=== PATIENT | male | born 1935 | race Hispanic/Latino ===

== ENCOUNTER 2016-11-28 08:13 | Emergency (ER) | payer MEDICARE, MEDICAID ==
[2016-11-28 09:08] LABS: #Eosinphils 0.2 thou/uL (0.0-0.7); #Lymphocytes 1.4 thou/uL (1.20-3.40); #Monocytes 0.4 thou/uL (0.11-0.59); #Neutrophils 3.2 thou/uL (1.40-6.50); %Basophils 0.4 % (0.0-1.0); %Eosinophils 4.1 % (0.0-10.0); %Lymphocytes 26.6 % (21.0-51.0); %Monocytes 7.1 % (0.0-10.0); Hematocrit 32.6 % (42.0-52.0); Mean Platelet Volume 6.1 fL (7.4-10.4); White Blood Cell (WBC) Count 5.1 thou/uL (4.8-10.8)
--- NOTE | 2016-11-28 09:08 | RAD ---
CHEST 1 VIEW: HISTORY: Pain. COMPARISON: Chest 1 view 09/07/15. FINDINGS: Heart size is enlarged. There is a vascular stent over the right subclavian vasculature. Some atelectasis in the lower lobes. No pneumothorax. IMPRESSION: Cardiomegaly. Otherwise, no acute intrathoracic abnormality. POS: [facility]
[2016-11-28 09:24] LABS: PTT 39.7 SEC (22.9-36.1)
[2016-11-28 09:26] LABS: Lactic Acid - Sepsis 1.1 mmol/L (0.5-2.2)
[2016-11-28 09:27] LABS: ALT (SGPT) 13 U/L (8-55); AST (SGOT) 13 U/L (5-34); Alkaline Phosphatase 139 U/L (40-150); Anion Gap 12 mmol/L (10-20); BUN (Urea Nitrogen) 22 mg/dL (8.4-25.7); Bilirubin, Total 0.4 mg/dL (0.2-1.2); CK (CPK) 53 U/L (30-200); Calc. Creatinine Clearance 0 mL/min (70-130); Calcium 8.8 mg/dL (7.8-10.44); Carbon Dioxide 27 mmol/L (23-31); Chloride 102 mmol/L (98-107); Estimated GFR-MDRD 23; Globulin 3.7 g/dL (2.4-3.5); Protein, Total 7.4 g/dL (5.8-8.1)
[2016-11-28 09:32] LABS: Troponin I Less than 0.010 ng/mL (< 0.028)
--- NOTE | 2016-11-28 10:40 | CT ---
HEAD CT NONCONTRAST: 11/28/16 COMPARISON: 23 September 2015. INDICATION: Pain. FINDINGS: There is mild parenchymal volume loss with stable sized ventricular system. No intracranial hemorrha ge, mass effect or midline shift. There are terra holes of the right calvarium again seen. No significant interval detrimental change. IMPRESSION: No acute intracranial hemorrhage or mass effect. Resolution of prior minimal parafalcine subdural hematoma. POS: [facility]
--- NOTE | 2016-11-28 10:47 | CT ---
CT OF THE CERVICAL SPINE WITHOUT CONTRAST: Date: 11/28/16 COMPARISON: 09/22/15. HISTORY: Cervical pain. TECHNIQUE: Multiple contiguous axial images were obtained in a CT of the cervical spine without contrast. Sagit otto and coronal reformats were performed. FINDINGS: There are moderate degenerative changes throughout the cervical spine. These appear to have progress ed compared to the prior examination. The intervertebral discs continue to narrow and posterior oste ophytes are seen throughout the cervical spine causing moderate central canal stenosis. There is als o moderate bilateral neural foraminal stenosis throughout the cervical spine. No acute fracture or s ubluxation is seen. No prevertebral soft tissue swelling is seen. The posterior facets are well aligned. Normal alignment of the skull base with the cervical spine is seen. There is a stent in the right subclavian region. The visualized lung apices are unremarkable. IMPRESSION: Moderate to severe degenerative changes of the cervical spine without acute osseous abnormality. POS: [facility]
[2016-11-28] MEDS ORDERED: Dexamethasone 4 mg/ml Vial ONE ×2 (11:07)
== END 2016-11-28 12:41 | disposition home or self-care (01) ==
LOC: ERS 08:13
DX: M54.2 Cervicalgia (principal); F03.90 Unspecified dementia, unspecified severity, without behavioral disturbance, psychotic disturbance, mood disturbance, and anxiety; D64.9 Anemia, unspecified; I11.0 Hypertensive heart disease with heart failure; I50.9 Heart failure, unspecified; E78.5 Hyperlipidemia, unspecified; F32.9 Major depressive disorder, single episode, unspecified; Z79.4 Long term (current) use of insulin; Z99.2 Dependence on renal dialysis; Z79.899 Other long term (current) drug therapy
CPT/HCPCS: 36415; 70450; 71010; 72125; 80053; 82553; 83605; 84484; 85025; 85610; 85730; 93005; 94760; J1100

== ENCOUNTER 2017-03-29 20:01 | Inpatient (IN) | payer MEDICARE, MEDICAID ==
--- NOTE | 2017-03-29 20:33 | RAD ---
FRONTAL VIEW CHEST 03/29/17 COMPARISON: 11/28/16 INDICATION: Altered mental status. FINDINGS: Stable linear density overlies the left aspect of the cardiac silhouette. There is patchy bilateral p erihilar density. Elevation of right hemidiaphragm is seen. Enlargement of the cardiac silhouette and pulmonary vasculature suggests CHF/edema. IMPRESSION: Grossly stable chest with findings to indicate CHF. Correlate clinically. POS: [facility]
--- NOTE | 2017-03-29 20:45 | CT ---
CT HEAD NONCONTRAST 03/29/17 INDICATION: Confusion, altered mental status. FINDINGS: there is no intracranial hemorrhage, mass effect or midline shift. Mild parenchymal volume los sis ag e related. Ventricular system is age appropriate in size. No acute fluid of the paranasal sinuses. IMPRESSION: No acute intracranial hemorrhage or mass effect. POS: [facility]
[2017-03-29 20:55] LABS: #Eosinphils 0.3 thou/uL (0.0-0.7); #Lymphocytes 1.4 thou/uL (1.20-3.40); #Monocytes 0.3 thou/uL (0.11-0.59); #Neutrophils 2.8 thou/uL (1.40-6.50); %Basophils 0.5 % (0.0-1.0); %Eosinophils 5.2 % (0.0-10.0); %Lymphocytes 29.9 % (21.0-51.0); %Monocytes 5.9 % (0.0-10.0); %Neutrophils 58.5 % (42.0-75.0); Hemoglobin 11.7 g/dL (14.0-18.0); Mean Corpuscular HGB CONC 32.5 g/dL (32.0-36.0); Mean Corpuscular Hemoglobin 31.6 pg (27.0-31.0); Mean Corpuscular Volume 97.3 fl (80.0-94.0); Mean Platelet Volume 7.2 fL (7.4-10.4); Platelet Count 161 thou/uL (130-400); RBC Distribution Width 15.7 % (11.5-14.5); Red Blood Cell (RBC) Count 3.69 mill/uL (4.70-6.10); White Blood Cell (WBC) Count 4.8 thou/uL (4.8-10.8)
[2017-03-29 21:00] LABS: Bilirubin Negative (Negative); Blood, Urine Negative (Negative); Clarity CLEAR (Clear); Glucose, Urine (Dipstick) 100 mg/dL (Negative); Leukocyte Negative (Negative); Nitrite Negative (Negative); Protein, Urine (Dipstick) 100 mg/dL (Neg-Trace); Specific Gravity, Urine 1.013 (1.002-1.036); Urobilinogen 0.2 mg/dL (0.2-1.0); pH, Urine 7.5 (5.0-9.0)
[2017-03-29 21:02] LABS: Bacteria/HPF None Seen HPF (None Seen); Hyaline Casts/LPF 0-3 HYALINE CAST LPF (0-3 Hyaline); Pathc Cast-AUWi Flag 0.27 (0-2.49); RBC/HPF 0-3 HPF (0-3); Squamous Epithelial 0-3 HPF (0-3); WBC/HPF 0-3 HPF (0-3)
[2017-03-29 21:17] LABS: ALT (SGPT) 18 U/L (8-55); AST (SGOT) 14 U/L (5-34); Albumin 3.7 g/dL (3.4-4.8); Alkaline Phosphatase 128 U/L (40-150); Anion Gap 12 mmol/L (10-20); BUN (Urea Nitrogen) 40 mg/dL (8.4-25.7); Bilirubin, Total 0.4 mg/dL (0.2-1.2); CK (CPK) 35 U/L (30-200); Calc. Creatinine Clearance 0 mL/min (70-130); Calcium 8.3 mg/dL (7.8-10.44); Carbon Dioxide 27 mmol/L (23-31); Chloride 104 mmol/L (98-107); Estimated GFR-MDRD 16; Globulin 3.1 g/dL (2.4-3.5); Glucose 147 mg/dL (83-110); Potassium 4.3 mmol/L (3.5-5.1); Protein, Total 6.8 g/dL (5.8-8.1); Sodium 139 mmol/L (136-145)
[2017-03-29 21:20] LABS: CKMB 0.8 ng/mL (0-6.6); Troponin I Less than 0.010 ng/mL (< 0.028)
[2017-03-29] MEDS ORDERED: Sodium Chloride 0.9% 1,000 ML IV SCH (23:45)
[2017-03-29] MEDS ORDERED: Acetaminophen 325 MG TAB PO PRN (23:45)
[2017-03-29] MEDS ORDERED: HumaLOG 300 UNITS/3 ML VIAL SC PRN (23:52)
[2017-03-29] MEDS ORDERED: Dextrose 5% in Water 1,000 ML IV PRN (23:52)
[2017-03-29] MEDS ORDERED: Dextrose 50% Abboject 50 ML SYRINGE SLOW IVP PRN (23:52)
[2017-03-30 00:44] VITALS: BMI 28.8
--- NOTE | 2017-03-30 00:49 | HP ---
CHIEF COMPLAINT: Altered mental status. HISTORY OF PRESENT ILLNESS: Patient is an 81-year-old male who currently resides at a correction. He was brought in due to unresponsiveness and responsive only to painful stimuli per correction no shavon. Patient is Irish-speaking only and through the interpretation line, when I had him asking que stions, he would only respond with asking for food. This appears to be more interactive than cm swartz prior to me seeing him. He was documented as being were sought who responsive only to painful st imuli. He does also have a history of having blindness in one eye. The patient otherwise was not ab le to give me any history and rest of history is from the chart. PAST MEDICAL HISTORY: Patient is listed as having renal disease on hemodialysis with end-stage renal disease. He also has dementia and it is unclear what his baseline. Currently, he has listed also a history of diabetes, hyperlipidemia, and hypertension. 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 He has a fistula in hi s upper arm on the right side, which is being dialyzed. SOCIAL HISTORY: Patient currently lives in a correction, listed as not having any alcohol or tobac co use. REVIEW OF SYSTEMS: Unable to obtain due to confusion and probable dementia. LABORATORY AND X-RAY DATA: Patient's CBC, white count was 4.8, H&H 11 and 35 with a platelet of 161. Sodium is 139, potassium 4.3, chloride 104, BUN 40, creatinine 3.5 with bicarbonate of 27. UA was negative for leukocyte esterase and nitrites. Chest x-ray was unremarkable and his head CT did not s how any signs of acute stroke or bleed. PHYSICAL EXAMINATION: VITAL SIGNS: Blood pressure 168/82, pulse 64, respirations 16 and patient sat is 96% on room air. GENERAL: Patient is awake. He does respond somewhat, but through interpretation only says that he w ants food. HEENT: Pupils are equal, round, react to light and accommodation. Extraocular muscles appear to be intact. CARDIOVASCULAR: Regular rate and rhythm. LUNGS: Clear to auscultation bilaterally. ABDOMEN: Positive bowel sounds, soft, nontender, nondistended. EXTREMITIES: No clubbing, cyanosis, or edema noted left BKA. NEUROLOGIC: Patient is moving all his extremities. PSYCHIATRIC: Patient appears to be cognizant of his surroundings; however, does not respond appropri ately through translation. ASSESSMENT AND PLAN: 1. Altered mental status, unclear etiology at this point. He certainly appears to be improved from initial presentation. Continue to observe and monitor. 2. Type 2 diabetes. Continue on sliding scale. 3. End-stage renal disease. We will notify Nephrology in the morning of patient's admission status. 4. Hypertension, careful monitoring of his blood pressure with judicious use of his blood pressure m edication as certainly hypotension can cause him to be altered. 5. Code status: Unknown. Currently, we will clarify in the morning from correction; however, we will maintain and was FULL CODE for now.
[2017-03-30] MEDS ORDERED: hydrALAZINE 20 MG/ML VIAL SLOW IVP PRN (08:09)
[2017-03-30] MEDS ORDERED: cloNIDine 0.1 MG TAB PO PRN (08:09)
--- NOTE | 2017-03-30 08:12 | PDOC.PN ---
- Subjective Encounter Start Date: 03/30/17 Encounter Start Time: 08:10 Mr. Vila was seen today in follow-up for altered mental status. He appears to be at his baseline. One of our staff members who also works at his nursing facility notes he appears baseline. He is sitting up in bed. He is awake and alert. When asked how he feels he says he feels like a " Miller". He has no complaints. - Objective Resuscitation Status: Resuscitation Status FULL:Full Resuscitation MAR Reviewed: Yes Vital Signs & Weight: Vital Signs (12 hours) Temp Pulse Resp BP Pulse Ox 03/30/17 04:43 97.7 F 74 20 190/84 H 95 03/30/17 00:18 96.7 F L 73 18 96 03/29/17 23:53 96.7 F L 73 18 184/85 H 96 Weight Weight 162 lb 14.4 oz I&O: 03/29/17 03/30/17 03/31/17 06:59 06:59 06:59 Intake Total 375 Output Total 0 Balance 375 Result Diagrams: 03/29/17 20:40 03/29/17 20:40 Additional Labs: Accuchecks 03/30/17 05:54 POC Glucose 137 H Phys Exam - Physical Examination HEENT: PERRLA Respiratory: no wheezing, no rales, no rhonchi, clear to auscultation bilateral Cardiovascular: RRR, no significant murmur Gastrointestinal: soft, non-tender, positive bowel sounds Musculoskeletal: no edema Bilateral amputations lower extremities Dx/Plan (1) Altered mental status Code(s): R41.82 - ALTERED MENTAL STATUS, UNSPECIFIED Status: Acute (2) ESRD (end stage renal disease) on dialysis Code(s): N18.6 - END STAGE RENAL DISEASE; Z99.2 - DEPENDENCE ON RENAL DIALYSIS Status: Acute (3) DM type 2 (diabetes mellitus, type 2) Status: Chronic (4) HTN (hypertension) Code(s): I10 - ESSENTIAL (PRIMARY) HYPERTENSION Status: Chronic - Plan * Altered mental status- ? etiology, suspect due to Dementia * There are no obvious signs of infection, CT brain was negative * HTN- blood pressure is elevated- will add Hydralazine as needed * DM- Blood glucose is stable * ESRD- stable * He can be discharged back to the [facility].
[2017-03-30 08:47] LABS: #Eosinphils 0.2 thou/uL (0.0-0.7); #Lymphocytes 1.4 thou/uL (1.20-3.40); #Monocytes 0.3 thou/uL (0.11-0.59); #Neutrophils 3.3 thou/uL (1.40-6.50); %Basophils 0.2 % (0.0-1.0); %Eosinophils 3.6 % (0.0-10.0); %Lymphocytes 27.2 % (21.0-51.0); %Monocytes 4.8 % (0.0-10.0); %Neutrophils 64.3 % (42.0-75.0); Hemoglobin 11.9 g/dL (14.0-18.0); Mean Corpuscular Hemoglobin 31.8 pg (27.0-31.0); Mean Corpuscular Volume 96.4 fl (80.0-94.0); Mean Platelet Volume 6.8 fL (7.4-10.4); Platelet Count 139 thou/uL (130-400); RBC Distribution Width 15.6 % (11.5-14.5); Red Blood Cell (RBC) Count 3.73 mill/uL (4.70-6.10); White Blood Cell (WBC) Count 5.1 thou/uL (4.8-10.8)
[2017-03-30] MEDS ORDERED: Enoxaparin Sodium 30 MG/0.3 ML SYRINGE SC SCH (09:00)
[2017-03-30] MEDS ORDERED: Metoprolol Tartrate 50 MG TAB PO SCH (09:00)
[2017-03-30] MEDS ORDERED: Atorvastatin Calcium 10 MG TAB PO SCH (09:00)
[2017-03-30] MEDS ORDERED: hydrALAZINE 25 MG TAB PO SCH (09:00)
[2017-03-30 09:05] LABS: Anion Gap 13 mmol/L (10-20); BUN (Urea Nitrogen) 40 mg/dL (8.4-25.7); Calc. Creatinine Clearance 17 mL/min (70-130); Calcium 8.2 mg/dL (7.8-10.44); Carbon Dioxide 22 mmol/L (23-31); Chloride 107 mmol/L (98-107); Estimated GFR-MDRD 17; Glucose 174 mg/dL (83-110); Potassium 4.8 mmol/L (3.5-5.1); Sodium 137 mmol/L (136-145)
[2017-03-30 11:34] VITALS: BP 181/83; TEMP 98.1
[2017-03-30] MEDS ORDERED: Mirtazapine 15 MG TAB PO SCH (21:00)
--- NOTE | 2017-04-01 13:39 | DIS ---
DATE OF ADMISSION: 03/29/2017 DATE OF DISCHARGE: 03/30/2017 PRIMARY CARE PHYSICIAN: Dr. Troy Rivera. DISCHARGE DISPOSITION: [facility] to the [facility]. DISCHARGE DIAGNOSES: 1. Altered mental status, possibly due to dementia. 2. History of diabetes mellitus, type 2. 3. Hyperlipidemia. 4. Hypertension. 5. End-stage renal disease, on dialysis. DISCHARGE MEDICATIONS: Include, loperamide p.r.n., [place] 10/325 q.6 hours as needed, Apresoline 25 m g twice daily, gabapentin 100 mg daily, Lipitor 10 mg at bedtime, and Tylenol 650 mg q.4 hours as nee ded. PROCEDURES DONE DURING ADMISSION: The patient had a CT scan of the brain showing no acute intracrani al hemorrhage or mass. The patient also had urine culture, which was negative. HOSPITAL COURSE: Mr. Ambrocio is a pleasant 81-year-old gentleman, who was sent over from the nursing [facility], as it was reported that he was acting different than his normal self. He seemed less responsive. However, by the time he arrived at our hospital, he seemed back at his baseline One of the staff m paul here is familiar with him at the [facility] and stated that he appears to be back at his bas renée. When I saw him, he was awake, talking, joking, and saying he feels like a ulysses. Cultures don e were again negative. There was no evidence of any fever, no elevation in his white count. CT scan was negative and I suspect that the altered mental status could be just due to waxing and waning of his dementia. He was discharged back to the [facility] in stable condition.
--- NOTE | 2017-04-05 17:05 | EKG ---
Test Reason : Blood Pressure : / mmHG Vent. Rate : 065 BPM Atrial Rate : 065 BPM P-R Int : 206 ms QRS Dur : 086 ms QT Int : 438 ms P-R-T Axes : 073 041 020 degrees QTc Int : 455 ms Normal sinus rhythm Normal ECG Confirmed by ZAKIA JAMESON D.O. ([id number]), commercial production editor MILADYS VACA ([id number]) on 04/05/2017 5:04:23 PM Referred By: Confirmed By:ZAKIA JAMESON D.O.
== END 2017-03-30 12:53 | DRG 884 ==
LOC: ERS 20:01 → 2NO 22:28
PROVIDERS: ADMIT Hospitalist; ATTEND Hospitalist
DX: F03.90 Unspecified dementia, unspecified severity, without behavioral disturbance, psychotic disturbance, mood disturbance, and anxiety (principal); E11.22 Type 2 diabetes mellitus with diabetic chronic kidney disease; I12.0 Hypertensive chronic kidney disease with stage 5 chronic kidney disease or end stage renal disease; N18.6 End stage renal disease; Z99.2 Dependence on renal dialysis; Z89.511 Acquired absence of right leg below knee; E78.5 Hyperlipidemia, unspecified
CPT/HCPCS: 36415; 36416; 51701; 70450; 71045; 80048; 80053; 81003; 81015; 82553; 84484; 85025; 87086; 93005; J1650

== ENCOUNTER 2017-08-09 12:35 | Emergency (ER) | payer MEDICARE, MEDICAID ==
[2017-08-09 13:03] LABS: #Eosinphils 0.2 thou/uL (0.0-0.7); #Lymphocytes 1.1 thou/uL (1.20-3.40); #Monocytes 0.3 thou/uL (0.11-0.59); #Neutrophils 2.5 thou/uL (1.40-6.50); %Basophils 0.6 % (0.0-1.0); %Eosinophils 5.1 % (0.0-10.0); %Lymphocytes 26.9 % (21.0-51.0); %Monocytes 6.4 % (0.0-10.0); %Neutrophils 61.1 % (42.0-75.0); Mean Corpuscular HGB CONC 34.5 g/dL (32.0-36.0); Mean Corpuscular Volume 98.6 fL (78.0-98.0); Mean Platelet Volume 6.4 fL (7.4-10.4); Platelet Count 139 thou/uL (130-400); RBC Distribution Width 14.1 % (11.5-14.5); Red Blood Cell (RBC) Count 3.52 mill/uL (4.70-6.10)
[2017-08-09 13:23] LABS: Bilirubin Negative (Negative); Blood, Urine Negative (Negative); Clarity CLEAR (Clear); Glucose, Urine (Dipstick) 250 mg/dL (Negative); Leukocyte Negative (Negative); Nitrite Negative (Negative); Protein, Urine (Dipstick) 300 mg/dL (Neg-Trace); Specific Gravity, Urine 1.013 (1.002-1.036); Urobilinogen 0.2 mg/dL (0.2-1.0)
[2017-08-09 13:24] LABS: Bacteria/HPF None Seen HPF (None Seen); Hyaline Casts/LPF 0-3 HYALINE CAST LPF (0-3 Hyaline); Squamous Epithelial None Seen HPF (0-3); WBC/HPF 0-3 HPF (0-3)
[2017-08-09 13:26] LABS: ALT (SGPT) 13 U/L (8-55); AST (SGOT) 13 U/L (5-34); Albumin 3.9 g/dL (3.4-4.8); Alkaline Phosphatase 124 U/L (40-150); Anion Gap 13 mmol/L (10-20); BUN (Urea Nitrogen) 33 mg/dL (8.4-25.7); Bilirubin, Total 0.6 mg/dL (0.2-1.2); CK (CPK) 54 U/L (30-200); Calc. Creatinine Clearance 0 mL/min (70-130); Calcium 8.6 mg/dL (7.8-10.44); Carbon Dioxide 23 mmol/L (23-31); Chloride 111 mmol/L (98-107); Estimated GFR-MDRD 14; Globulin 2.8 g/dL (2.4-3.5); Glucose 109 mg/dL (83-110); Lipase 29 U/L (8-78); Magnesium 2.1 mg/dL (1.6-2.6); Phosphorus 3.1 mg/dL (2.3-4.7); Potassium 4.5 mmol/L (3.5-5.1); Protein, Total 6.7 g/dL (5.8-8.1); Sodium 142 mmol/L (136-145)
[2017-08-09 13:29] LABS: CKMB 1.4 ng/mL (0-6.6); Troponin I Less than 0.010 ng/mL (< 0.028)
[2017-08-09 13:52] LABS: Acetaminophen Less than 6.0 mcg/mL (10.0-30.0); Alcohol Less than 10 mg/dL (Less than 10); Salicylate Less than 8.0 mg/dL (15.0-30.0)
[2017-08-09] MEDS ORDERED: hydrALAZINE 20 MG/ML VIAL ONE (13:58)
--- NOTE | 2017-08-09 14:23 | CT ---
BRAIN CT WITHOUT IV CONTRAST: Date: 08/09/17 HISTORY: 82-year-old male with history of altered mental status. Patient is a dialysis patient. Agitation afte r dialysis. FINDINGS: Postop right craniotomy bur holes. No mass or midline shift. Bilateral atrophy and chronic white sandra er ischemic change. No evidence for acute hemorrhage. IMPRESSION: Atrophy and chronic white matter ischemic changes. No mass or bleed. Stable right-sided bur holes. Un changed from prior exam. POS: [facility]
--- NOTE | 2017-08-09 14:25 | RAD ---
PORTABLE CHEST: Date: 08/09/17 HISTORY: Mental status change. COMPARISON: 03/29/17. FINDINGS: The lung leone appear clear. The heart is mildly enlarged and there is mild vascular engorgement whi ch appears stable. IMPRESSION: No acute interval change noted. POS: [facility]
== END 2017-08-09 17:07 | disposition home or self-care (01) ==
LOC: ERS 12:35
DX: R41.82 Altered mental status, unspecified (principal); F03.90 Unspecified dementia, unspecified severity, without behavioral disturbance, psychotic disturbance, mood disturbance, and anxiety; D64.9 Anemia, unspecified; I11.0 Hypertensive heart disease with heart failure; I50.9 Heart failure, unspecified; E78.5 Hyperlipidemia, unspecified; F32.9 Major depressive disorder, single episode, unspecified; Z79.899 Other long term (current) drug therapy; E11.9 Type 2 diabetes mellitus without complications; Z79.4 Long term (current) use of insulin
CPT/HCPCS: 36416; 51701; 70450; 71045; 80053; 80307; 81003; 81015; 82550; 82553; 83690; 83735; 84100; 84443; 84484; 85025; 87086; 93005; 94760; 96374; J0360

== ENCOUNTER 2017-09-02 11:50 | Observation (INO) | payer MEDICARE, MEDICAID ==
[2017-09-02] MEDS ORDERED: Lorazepam 2 MG/ML VIAL ONE (12:16)
[2017-09-02 12:41] LABS: #Eosinphils 0.2 thou/uL (0.0-0.7); #Lymphocytes 1.8 thou/uL (1.20-3.40); #Monocytes 0.4 thou/uL (0.11-0.59); %Basophils 0.4 % (0.0-1.0); %Eosinophils 2.9 % (0.0-10.0); %Lymphocytes 27.3 % (21.0-51.0); %Monocytes 6.8 % (0.0-10.0); %Neutrophils 62.7 % (42.0-75.0); Hemoglobin 11.9 g/dL (14.0-18.0); Mean Corpuscular HGB CONC 35.1 g/dL (32.0-36.0); Mean Corpuscular Hemoglobin 34.1 pg (27.0-31.0); Mean Corpuscular Volume 97.4 fL (78.0-98.0); Mean Platelet Volume 6.7 fL (7.4-10.4); Platelet Count 146 thou/uL (130-400); RBC Distribution Width 12.8 % (11.5-14.5); Red Blood Cell (RBC) Count 3.48 mill/uL (4.70-6.10); White Blood Cell (WBC) Count 6.4 thou/uL (4.8-10.8)
[2017-09-02 12:59] LABS: ALT (SGPT) 15 U/L (8-55); AST (SGOT) 13 U/L (5-34); Albumin 3.9 g/dL (3.4-4.8); Alkaline Phosphatase 129 U/L (40-150); Anion Gap 14 mmol/L (10-20); BUN (Urea Nitrogen) 48 mg/dL (8.4-25.7); Bilirubin, Total 0.6 mg/dL (0.2-1.2); CK (CPK) 37 U/L (30-200); Calc. Creatinine Clearance 0 mL/min (70-130); Calcium 8.6 mg/dL (7.8-10.44); Carbon Dioxide 25 mmol/L (23-31); Chloride 103 mmol/L (98-107); Estimated GFR-MDRD 12; Globulin 2.9 g/dL (2.4-3.5); Glucose 110 mg/dL (83-110); Potassium 4.4 mmol/L (3.5-5.1); Protein, Total 6.8 g/dL (5.8-8.1); Sodium 138 mmol/L (136-145)
[2017-09-02 13:05] LABS: CKMB 0.8 ng/mL (0-6.6); Troponin I Less than 0.010 ng/mL (< 0.028)
--- NOTE | 2017-09-02 13:28 | CT ---
NONCONTRAST CT HEAD: Date: 09/02/17 HISTORY: Altered mental status. Patient sluggish and less interactive than usual. COMPARISON: 08/09/17. FINDINGS: Again noted are mild chronic small vessel ischemic changes and cerebral volume loss. There is no evid ence of an acute cortical infarction, hemorrhage, mass effect, or midline shift. The ventricular syst em is normal in size, shape, and position for the degree of sulcal atrophy. There has been no interva l change compared to the prior exam. IMPRESSION: No acute intracranial abnormality is demonstrated. POS: [facility]
[2017-09-02] MEDS ORDERED: Ondansetron HCl/PF 4 MG/2 ML Vial IVP PRN (19:55)
[2017-09-02] MEDS ORDERED: Ondansetron ODT 4 MG TAB SL PRN (19:55)
[2017-09-02] MEDS ORDERED: Acetaminophen 325 MG TAB PO PRN (19:55)
--- NOTE | 2017-09-03 04:40 | CON ---
DATE OF CONSULTATION: 09/02/2017 CONSULTING PHYSICIAN: ____. REASON FOR CONSULTATION: End-stage renal disease, evaluation and care. REASON FOR ADMISSION: Altered mentation. HISTORY OF PRESENT ILLNESS: This is an 82-year-old male with history of end-stage renal dis ease, type 2 diabetes, hypertension who came to the hospital with altered mentation. Patient was not acting normal and very sleepy this morning and was on his way to dialysis and EMS brought him to the hospital. No fevers or chills. PAST MEDICAL HISTORY: Positive for end-stage renal disease, anemia, hypertension, hyperlipidemia. PAST SURGICAL HISTORY: BKA and fistula placement. PAST MEDICATIONS: Atorvastatin, gabapentin, hydralazine, metoprolol, Mylanta, NovoLog, trazodone, B complex. ALLERGIES: No known drug allergies. SOCIAL HISTORY: No smoking, alcohol, or illicit drug abuse. FAMILY HISTORY: No history of any kidney disease. REVIEW OF SYSTEMS: The following complete review of systems was negative, unless otherwise mentioned in the HPI or below: Constitutional: Weight loss or gain, ability to conduct usual activities. Sk in: Rash, itching. Eyes: Double vision, pain. ENT/Mouth: Nose bleeding, neck stiffness, pain, te nderness. Cardiovascular: Palpitations, dyspnea on exertion, orthopnea. Respiratory: Shortness of breath, wheezing, cough, hemoptysis, fever, or night sweats. Gastrointestinal: Poor appetite, abdo faraz pain, heartburn, nausea, vomiting, constipation, or diarrhea. Genitourinary: Urgency, frequen cy, dysuria, nocturia. Musculoskeletal: Pain, swelling. Neurologic/Psychiatric: Anxiety, depressi on. Allergy/Immunologic: Skin rash, bleeding tendency. PHYSICAL EXAMINATION: GENERAL: This is an elderly male, very sleepy, somnolent. VITAL SIGNS: Temperature 98.6, pulse 60, respirations 18, blood pressure 156/70. HEENT: Atraumatic, normocephalic. Oral mucosa is moist. NECK: Supple, no masses. CARDIOVASCULAR: S1, S2 heard. Rate and rhythm regular. RESPIRATORY: Clear. ABDOMEN: Soft. MUSCULOSKELETAL: 1+ edema. DERMATOLOGIC: No skin rash. NEUROLOGIC: Alert, awake. PSYCHIATRIC: Mood and affect normal. LABORATORY DATA: Hemoglobin is 11.9, potassium 4.4, BUN is 40, creatinine is 4.7. ASSESSMENT AND PLAN: 1. End-stage renal disease, no acute indication for dialysis. 2. Edema, controlled. 3. Hypertension, stable. 4. Anemia, mild. Plan is to monitor and continue dialysis as tolerated. We will follow. Thank you for the consult.
[2017-09-03 05:59] VITALS: BMI 41.8
--- NOTE | 2017-09-03 17:23 | PRG ---
DATE OF SERVICE: 09/03/2017 SUBJECTIVE: Patient was seen and examined at bedside and overnight events noted. Patient denies any shortness of breath or chest pain or palpitation. No history of nausea or vomiting or diarrhea or f ever or chills or cramps. OBJECTIVE: GENERAL: This is a well-built male in no apparent distress. VITAL SIGNS: Temperature 97.6, pulse 61, respiratory rate 18, blood pressure 121/50. HEENT: Atraumatic, normocephalic. Oral mucosa is moist. NECK: Supple. CARDIOVASCULAR: S1, S2 heard. Rate and rhythm regular. RESPIRATORY: Clear to auscultation. GASTROINTESTINAL: Abdomen is soft. MUSCULOSKELETAL: No tenderness. No edema. DERMATOLOGIC: No skin rash. NEUROLOGIC: Alert and awake and oriented x3. No focal neurologic deficits. Moving all the extremiti es. PSYCHIATRIC: Mood and affect normal. LABORATORY DATA: Creatinine is 4.7. ASSESSMENT AND PLAN: 1. End-stage renal disease. Continue on dialysis as tolerated. 2. Edema controlled. 3. Hypertension, stable. 4. Anemia. 5. Altered mentation, better.
[2017-09-04 05:14] VITALS: BP 179/91
--- NOTE | 2017-09-04 08:27 | HP ---
PRIMARY CARE PHYSICIAN: None. WEB MANAGER: Dr. King DATE OF ADMISSION: 09/03/2017 CHIEF COMPLAINT: Altered mental status. HISTORY OF PRESENT ILLNESS: Mr. Ambrocio is an 82-year-old male with history of dementia, hyperlipidemia, hypertension, end-stage renal disease, diabetes, and peripheral neuropathy who prese nts to the emergency department via EMS. He is being transported to hemodialysis, he was noted by EMS to be less responsive and so he was brou ght to the ER. Here, workup was largely unremarkable. He was placed on our service for observation. He was accepte d by the mental retardation aide, but held over to the day shift. The patient was initially back to his baseline, they attempted to set him up for outpatient hemodialy sis, but they had no chairs available, so the patient is being placed in observation today. No other current complaints. PAST MEDICAL HISTORY: 1. End-stage renal disease on hemodialysis. 2. Hyperlipidemia. 3. Hypertension. 4. Peripheral neuropathy. 5. Diabetes mellitus type 2. PAST SURGICAL HISTORY: 1. Right BKA. 2. Left upper extremity fistula placement. ALLERGIES: NKDA. HOME MEDICATIONS: 1. Atorvastatin 10 mg p.o. at bedtime. 2. Gabapentin 100 mg daily. 3. Hydralazine 25 mg p.o. b.i.d. 4. Metoprolol tartrate 100 mg p.o. b.i.d. FAMILY HISTORY: Negative for clotting or bleeding disorder. No immune dysfunction. SOCIAL HISTORY: He lives at [facility]. Negative for habits x3. REVIEW OF SYSTEMS: Not obtainable due to dementia. PHYSICAL EXAMINATION: VITAL SIGNS: Temperature current 96.5 on admission, 97.5 on our visit, pulse 61, blood pressure 121/ 58, respiratory rate 16, satting 96% on room air. GENERAL: He is awake and alert. He is an elderly demented male on hemodialysis, appe ars to be in no distress. HEENT: Normocephalic, atraumatic. Pupils equal, round, and reactive to light bilaterally, they are sluggish. The mucous membranes are moist. He has bilateral arcus senilis. NECK: Supple. No lymphadenopathy, JVD, or thyromegaly. CHEST: Lungs are clear anteriorly. He has some faint bibasilar crackles that do not clear with deep inspiration. No wheezes. No prolonged expiratory phase. CARDIOVASCULAR: He is normal cardiac and regular. He has a 2/6 systolic ejection murmur right upper sternal border. ABDOMEN: Soft, it is obese, it is nontender, nondistended. No hepatosplenomegaly. EXTREMITIES: No cyanosis, clubbing, no edema. Fistula with a good palpable thrill. He is currently hooked up to dialysis. SKIN: Otherwise warm, moist and well-perfused without any other rash or lesions. MUSCULOSKELETAL: Normal to inspection. He has a right BKA, stump is intact. The remainder of his l arge joints appeared normal without any evidence of inflammation or palpable effusions. NEUROLOGIC: Not testable due to dementia and the patient not following commands. LABORATORY DATA: Chemistry shows a sodium 138, potassium 4.4, chloride 103, bicarbonate 25, BUN 48, creatinine 4.76, glucose 110, calcium 8.6. Liver functions within normal limits. Ammonia normal at 23, CK-MB normal at 0.8 and troponin I undetectable. Hematology showed a white blood cell count 6.4, hemoglobin 11.9, hematocrit 33.9, platelet count is 1 46,000 with normal differential. RADIOGRAPHIC STUDIES: CT scan of the brain was negative. ASSESSMENT AND PLAN: 1. Metabolic encephalopathy, etiology unclear. Seems to have recovered. He is on hemodialysis, cheryl erating well. Home to [facility] after dialysis, complete. 2. Hypertension. Continue home medications. 3. Hyperlipidemia. Continue home medications. 4. Diabetes mellitus type 2. Accu-Cheks and sliding scale have been ordered. 5. End-stage renal disease on hemodialysis. Dr. King has been consulted and is seeing the joycelynen ana
[2017-09-04 08:31] VITALS: TEMP 97.6
--- NOTE | 2017-09-04 08:31 | DIS ---
PRIMARY CARE PHYSICIAN: None. PRIMARY PARAPROFESSIONAL AIDE: Dr. King DATE OF ADMISSION: 09/03/2017 DATE OF DISCHARGE: 09/04/2017 DISCHARGE DIAGNOSES: 1. Metabolic encephalopathy, resolved. 2. End-stage renal disease on hemodialysis. 3. Hyperlipidemia. 4. Hypertension, essential, chronic. 5. Diabetes mellitus type 2. 6. Peripheral neuropathy. CONSULTATIONS: Nephrology, Dr. King. PROCEDURES: Hemodialysis 2 hours on 09/03/2017. HISTORY AND PHYSICAL: Mr. Ambrocio is an 82-year-old male who was being transported via [facility] to hemodialysis when he was felt to be altered. He was brought to the ER. Workup there was negat jeremías. He recovered fairly quickly. He was placed in observation. HOSPITAL COURSE: The patient was seen on hemodialysis. He underwent a 2 hour treatment and was back to his baseline per reports. He was being prepared to be transferred back to the nursing facility y afternoon, however, they were not unable to accept him until today. The patient did well ov ernight without any acute events and is stable for discharge today. PHYSICAL EXAMINATION: The patient was seen and examined on the date of discharge. Discharge plan and disposition were discussed with the nurses and the patient. Due to dementia, I do ubt the patient really got anything. DISCHARGE MEDICATIONS: 1. Atorvastatin 10 mg p.o. at bedtime. 2. Gabapentin 100 mg daily. 3. Hydralazine 25 mg p.o. b.i.d. 4. Metoprolol tartrate 100 mg p.o. b.i.d. DISCHARGE ACTIVITY: As tolerated. DISCHARGE DIET: Heart healthy, renal, diabetic diet ordered. DISCHARGE CONDITION: Stable. DISPOSITION: He will be discharged back to [facility]. He should have hemodialysi s later today.
--- NOTE | 2017-09-06 11:48 | EKG ---
Test Reason : AMS Blood Pressure : / mmHG Vent. Rate : 061 BPM Atrial Rate : 061 BPM P-R Int : 224 ms QRS Dur : 088 ms QT Int : 448 ms P-R-T Axes : 072 043 040 degrees QTc Int : 450 ms Sinus rhythm with 1st degree A-V block Otherwise normal ECG Confirmed by NEWTON MONTELONGO DO ([id number]), website/blog editor JUWAN COMBS ([id number]) on 09/06/2017 11:48:05 AM Referred By: S Confirmed By:NEWTON MONTELONGO DO
== END 2017-09-04 10:10 ==
LOC: ERS 11:50 → ERHOLD 16:33 → 2SE 19:32
PROVIDERS: ADMIT Internal Medicine; ATTEND Family Medicine
DX: G93.41 Metabolic encephalopathy (principal); I12.0 Hypertensive chronic kidney disease with stage 5 chronic kidney disease or end stage renal disease; E11.22 Type 2 diabetes mellitus with diabetic chronic kidney disease; N18.6 End stage renal disease; D63.1 Anemia in chronic kidney disease; E11.42 Type 2 diabetes mellitus with diabetic polyneuropathy; E78.5 Hyperlipidemia, unspecified; Z99.2 Dependence on renal dialysis; Z79.899 Other long term (current) drug therapy; Z79.4 Long term (current) use of insulin
CPT/HCPCS: 70450; 80053; 82140; 82550; 82553; 84484; 85025; 93005; 96372; 99285; G0378; 36415; 90935; G0257; J2060

== ENCOUNTER 2017-11-07 13:38 | Emergency (ER) | payer MEDICARE, OTHER ==
[2017-11-07 15:00] LABS: #Eosinphils 0.2 thou/uL (0.0-0.7); #Lymphocytes 1.4 thou/uL (1.20-3.40); #Monocytes 0.4 thou/uL (0.11-0.59); #Neutrophils 3.4 thou/uL (1.40-6.50); %Basophils 0.4 % (0.0-1.0); %Lymphocytes 25.6 % (21.0-51.0); %Monocytes 7.3 % (0.0-10.0); %Neutrophils 62.7 % (42.0-75.0); Hemoglobin 10.9 g/dL (14.0-18.0); Mean Corpuscular HGB CONC 32.3 g/dL (32.0-36.0); Mean Corpuscular Volume 99.4 fL (78.0-98.0); Mean Platelet Volume 6.8 fL (7.4-10.4); Platelet Count 160 thou/uL (130-400); RBC Distribution Width 13.3 % (11.5-14.5); White Blood Cell (WBC) Count 5.5 thou/uL (4.8-10.8)
--- NOTE | 2017-11-07 15:06 | RAD ---
CHEST 1 VIEW: HISTORY: An 82-year-old male with a history of missed hemodialysis. COMPARISON: 08/09/17. FINDINGS: Monitor leads overlie the chest. Surgical clips in the right arm and right subclavian vascular stent . Pleural calcification changes are noted in the left base. No confluent pneumonia, overt edema, or pleural effusion. IMPRESSION: Stable chest with some left-sided pleural calcifications. No confluent pneumonia or overt edema or o ther significant new process. POS: [facility]
[2017-11-07 15:21] LABS: ALT (SGPT) 17 U/L (8-55); AST (SGOT) 15 U/L (5-34); Albumin 3.9 g/dL (3.4-4.8); Alkaline Phosphatase 124 U/L (40-150); Anion Gap 14 mmol/L (10-20); BUN (Urea Nitrogen) 45 mg/dL (8.4-25.7); Bilirubin, Total 0.5 mg/dL (0.2-1.2); Calc. Creatinine Clearance 0 mL/min (70-130); Calcium 8.9 mg/dL (7.8-10.44); Carbon Dioxide 23 mmol/L (23-31); Chloride 106 mmol/L (98-107); Estimated GFR-MDRD 11; Glucose 161 mg/dL (83-110); Potassium 4.7 mmol/L (3.5-5.1); Protein, Total 6.9 g/dL (5.8-8.1); Sodium 138 mmol/L (136-145)
== END 2017-11-07 17:06 | disposition home or self-care (01) ==
LOC: ERS 13:38
DX: I13.2 Hypertensive heart and chronic kidney disease with heart failure and with stage 5 chronic kidney disease, or end stage renal disease (principal); N18.6 End stage renal disease; E11.22 Type 2 diabetes mellitus with diabetic chronic kidney disease; I50.9 Heart failure, unspecified; E78.5 Hyperlipidemia, unspecified; Z79.4 Long term (current) use of insulin; Z79.899 Other long term (current) drug therapy
CPT/HCPCS: 36415; 71045; 80053; 85025; 94760

== ENCOUNTER 2017-12-08 19:51 | Emergency (ER) | payer MEDICARE, MEDICAID ==
--- NOTE | 2017-12-08 20:54 | RAD ---
RIGHT HAND THREE VIEWS: HISTORY: Pain. FINDINGS: There is extensive atherosclerosis of the vessels. There is degenerative change of the first carpome tacarpal joint space. Mild degenerative change of the interphalangeal joint space and second and thi rd metatarsophalangeal joint spaces is noted. No erosive or destructive changes involving the carpal bones. There is mild lucency with possibly erosive change involving the distal aspect of the middle phalanx of the second and third digits. IMPRESSION: Degenerative changes and erosive changes, as described above. Correlate clinically. POS: [facility]
--- NOTE | 2017-12-08 20:56 | RAD ---
RIGHT WRIST THREE VIEWS: HISTORY: Pain. COMPARISON: 08/25/2015 FINDINGS: Atherosclerotic disease is noted. Inner carpal and radial carpal joint spaces are preserved. There is degenerative change in the first carpometacarpal joint space. There are no erosive or destructive changes. IMPRESSION: 1. Chronic change of the right wrist. 2. Extensive vascular calcification. 3. Atherosclerosis. POS: [facility]
== END 2017-12-08 21:48 | disposition home or self-care (01) ==
LOC: ERS 19:51
DX: M25.431 Effusion, right wrist (principal); F03.90 Unspecified dementia, unspecified severity, without behavioral disturbance, psychotic disturbance, mood disturbance, and anxiety; D64.9 Anemia, unspecified; I11.0 Hypertensive heart disease with heart failure; I50.9 Heart failure, unspecified; E78.5 Hyperlipidemia, unspecified; F32.9 Major depressive disorder, single episode, unspecified; E11.9 Type 2 diabetes mellitus without complications; Z79.4 Long term (current) use of insulin; Z79.899 Other long term (current) drug therapy

== ENCOUNTER 2018-03-03 14:43 | Emergency (ER) | payer MEDICARE, MEDICAID ==
[2018-03-03 16:05] LABS: #Eosinphils 0.1 thou/uL (0.0-0.7); #Lymphocytes 1.3 thou/uL (1.20-3.40); #Monocytes 0.3 thou/uL (0.11-0.59); #Neutrophils 3.3 thou/uL (1.40-6.50); %Basophils 0.5 % (0.0-1.0); %Eosinophils 2.8 % (0.0-10.0); %Lymphocytes 25.2 % (21.0-51.0); %Monocytes 5.4 % (0.0-10.0); %Neutrophils 66.1 % (42.0-75.0); Hemoglobin 12.3 g/dL (14.0-18.0); Mean Corpuscular HGB CONC 33.2 g/dL (32.0-36.0); Mean Corpuscular Volume 99.5 fL (78.0-98.0); Mean Platelet Volume 7.1 fL (7.4-10.4); Platelet Count 200 thou/uL (130-400); Red Blood Cell (RBC) Count 3.73 mill/uL (4.70-6.10)
--- NOTE | 2018-03-03 17:18 | RAD ---
AP VIEW ABDOMEN: 03/03/18 HISTORY: Abdominal pain. AP view abdomen obtained. The abdominal gas pattern is nonspecific. There appears to be areas of calcification or increased den sity in the left upper quadrant of the abdomen. This is unchanged since the previous radiograph of est from 11/07/17. IMPRESSION: Calcification in the left upper quadrant of the abdomen. No evidence of bowel obstruction or ileus se en. POS: [facility]
== END 2018-03-03 17:59 | disposition home or self-care (01) ==
LOC: ERS 14:43
DX: R10.9 Unspecified abdominal pain (principal); F03.90 Unspecified dementia, unspecified severity, without behavioral disturbance, psychotic disturbance, mood disturbance, and anxiety; D64.9 Anemia, unspecified; E78.5 Hyperlipidemia, unspecified; F32.9 Major depressive disorder, single episode, unspecified; E11.9 Type 2 diabetes mellitus without complications; I11.0 Hypertensive heart disease with heart failure; I50.9 Heart failure, unspecified
CPT/HCPCS: 74018; 85025

== ENCOUNTER 2019-08-10 11:37 | Emergency (ER) | payer MEDICARE, MEDICAID ==
[2019-08-10] MEDS ORDERED: Lorazepam 2 MG/ML VIAL ONE (12:27)
[2019-08-10] MEDS ORDERED: Haloperidol Lactate 5 MG/ML VIAL ONE (12:27)
[2019-08-10 13:03] LABS: #Eosinphils 0.2 thou/uL (0.0-0.7); #Lymphocytes 1.6 thou/uL (1.20-3.40); #Monocytes 0.3 thou/uL (0.11-0.59); #Neutrophils 2.9 thou/uL (1.40-6.50); %Basophils 0.3 % (0.0-1.0); %Eosinophils 4.2 % (0.0-10.0); %Lymphocytes 31.5 % (21.0-51.0); %Monocytes 5.8 % (0.0-10.0); %Neutrophils 58.1 % (42.0-75.0); Hemoglobin 10.3 g/dL (14.0-18.0); Mean Corpuscular HGB CONC 34.5 g/dL (32.0-36.0); Mean Corpuscular Volume 95.6 fL (78.0-98.0); Mean Platelet Volume 6.8 fL (7.4-10.4); Platelet Count 168 thou/uL (130-400); RBC Distribution Width 12.9 % (11.5-14.5); Red Blood Cell (RBC) Count 3.13 mill/uL (4.70-6.10)
--- NOTE | 2019-08-10 13:18 | CT ---
Exam: Head CT without contrast HISTORY: Altered mental status COMPARISON: 11/13/2017 FINDINGS: Hemorrhage: No intraparenchymal hemorrhage or extra-axial hematoma. Brain parenchyma: Cortical bob-white matter differentiation is preserved. No mass effect or midline shift. Basilar cisterns are patent.Minimal periventricular white matter hypodensities due to chronic small vessel ischemic change. Ventricular system: Ventricles and sulci are patent and symmetric. Calvarium: Intact. Stable terra hole defects in the right calvarium. Sinuses and mastoid air cells: Adequate aeration. IMPRESSION: 1. No acute intracranial process.
--- NOTE | 2019-08-10 13:23 | RAD ---
EXAM: Single view of the chest HISTORY: Altered mental status COMPARISON: 11/13/2017 FINDINGS: Single view of the chest shows a normal sized cardiomediastinal silhouette. A stent is see n in the right subclavian region. Calcification is seen along the left heart border. There is no evidence of consolidation, mass, or pleural effusion. The bones are unremarkable. IMPRESSION: No evidence of acute cardiopulmonary disease
[2019-08-10 13:32] LABS: ALT (SGPT) 21 U/L (8-55); AST (SGOT) 11 U/L (5-34); Albumin 3.7 g/dL (3.4-4.8); Alkaline Phosphatase 120 U/L (40-110); Anion Gap 14 mmol/L (10-20); BUN (Urea Nitrogen) 71 mg/dL (8.4-25.7); Bilirubin, Total 0.5 mg/dL (0.2-1.2); CK (CPK) 73 U/L (30-200); Calc. Creatinine Clearance 0 mL/min (70-130); Calcium 7.9 mg/dL (7.8-10.44); Carbon Dioxide 18 mmol/L (23-31); Chloride 109 mmol/L (98-107); Estimated GFR-MDRD 8; Globulin 2.3 g/dL (2.4-3.5); Glucose 167 mg/dL (83-110); Lipase 34 U/L (8-78); Potassium 4.1 mmol/L (3.5-5.1); Sodium 137 mmol/L (136-145)
== END 2019-08-10 15:06 | disposition home or self-care (01) ==
LOC: ERS 11:37
DX: R45.6 Violent behavior (principal); I13.2 Hypertensive heart and chronic kidney disease with heart failure and with stage 5 chronic kidney disease, or end stage renal disease; E11.22 Type 2 diabetes mellitus with diabetic chronic kidney disease; N18.6 End stage renal disease; I50.9 Heart failure, unspecified; D63.1 Anemia in chronic kidney disease; F03.90 Unspecified dementia, unspecified severity, without behavioral disturbance, psychotic disturbance, mood disturbance, and anxiety; E78.5 Hyperlipidemia, unspecified; E78.00 Pure hypercholesterolemia, unspecified; F32.9 Major depressive disorder, single episode, unspecified; Z79.4 Long term (current) use of insulin; Z79.899 Other long term (current) drug therapy; Z99.2 Dependence on renal dialysis
CPT/HCPCS: 36415; 70450; 71045; 80053; 82140; 82550; 83690; 83880; 84484; 85025; 93005; 96372; J1630; J2060

== ENCOUNTER 2020-01-08 12:32 | Inpatient (IN) | payer MEDICARE, MEDICAID ==
[2020-01-08] MEDS ORDERED: Lorazepam 2 MG/ML VIAL ONE (12:45)
[2020-01-08] MEDS ORDERED: Haloperidol Lactate 5 MG/ML VIAL ONE ×2 (12:46→13:17)
--- NOTE | 2020-01-08 13:36 | CT ---
CT BRAIN WITHOUT CONTRAST: 01/08/20 HISTORY: Altered mental status. COMPARISON: 08/10/19. FINDINGS: There are changes of cortical atrophy and mild chronic small vessel ischemic disease. The ventricular size is stable and the basilar cisterns are patent. No evidence of acute infarct, hemorrhage, midline shift or abnormal extra-axial fluid collections are seen. Calos hole defects in the right calvarium are again seen. No acute calvarial abnormality is see n. The visualized paranasal sinuses and mastoid air cells are well aerated. IMPRESSION: No CT evidence of acute intracranial process. POS: [facility]
[2020-01-08 13:37] LABS: #Eosinphils 0.2 thou/uL (0.0-0.7); #Lymphocytes 1.5 thou/uL (1.20-3.40); #Monocytes 0.4 thou/uL (0.11-0.59); #Neutrophils 4.7 thou/uL (1.40-6.50); %Basophils 0.2 % (0.0-1.0); %Eosinophils 3.2 % (0.0-10.0); %Lymphocytes 22.3 % (21.0-51.0); %Monocytes 5.2 % (0.0-10.0); %Neutrophils 69.1 % (42.0-75.0); Mean Corpuscular Hemoglobin 32.2 pg (27.0-31.0); Mean Corpuscular Volume 94.6 fL (78.0-98.0); Mean Platelet Volume 6.8 fL (7.4-10.4); Platelet Count 206 thou/uL (130-400); RBC Distribution Width 13.1 % (11.5-14.5); Red Blood Cell (RBC) Count 3.43 mill/uL (4.70-6.10); White Blood Cell (WBC) Count 6.7 thou/uL (4.8-10.8)
[2020-01-08 14:00] LABS: ALT (SGPT) 17 U/L (8-55); AST (SGOT) 14 U/L (5-34); Albumin 3.6 g/dL (3.4-4.8); Alkaline Phosphatase 104 U/L (40-110); Anion Gap 18 mmol/L (10-20); BUN (Urea Nitrogen) 75 mg/dL (8.4-25.7); Bilirubin, Total 0.4 mg/dL (0.2-1.2); CK (CPK) 25 U/L (30-200); Calc. Creatinine Clearance 0 mL/min (70-130); Calcium 8.7 mg/dL (7.8-10.44); Carbon Dioxide 19 mmol/L (23-31); Chloride 105 mmol/L (98-107); Glucose 140 mg/dL (83-110); Lipase 43 U/L (8-78); Potassium 5.2 mmol/L (3.5-5.1); Protein, Total 6.6 g/dL (5.8-8.1); Sodium 137 mmol/L (136-145)
[2020-01-08] MEDS ORDERED: Guaifenesin DM 100-10/5 ML UDCUP PO PRN (14:45)
[2020-01-08] MEDS ORDERED: Acetaminophen 325 MG TAB PO PRN (14:45)
[2020-01-08] MEDS ORDERED: Ondansetron PF 4 MG/2 ML Vial IVP PRN (14:45)
[2020-01-08] MEDS ORDERED: Senokot S 8.6-50 MG TAB PO PRN (14:45)
[2020-01-08] MEDS ORDERED: Acetaminophen 650 MG Suppository PR PRN (14:45)
[2020-01-08] MEDS ORDERED: Bisacodyl 10 MG SUPP PR PRN (14:45)
--- NOTE | 2020-01-08 14:53 | RAD ---
Frontal radiograph chest portable upright: 01/08/2020 COMPARISON: 08/10/2019 HISTORY: Altered mental status, shortness of breath FINDINGS: Stable right subclavian vascular stent. Patchy opacity in the perihilar regions and both lucio ng bases, left greater than right, nonspecific and similar when compared to prior imaging. Linear calcification in the left lung base suggests mediastinal calcification. IMPRESSION: Portable chest radiograph as above.
--- NOTE | 2020-01-08 16:24 | HP ---
REASON FOR ADMISSION: Acute metabolic encephalopathy, hyperkalemia, volume overload. HISTORY OF PRESENTING ILLNESS: The patient was sent from senior living for hemodialysis. Apparently, in the dialysis center, the patient started to get agitated and was trying to hit staff there. They could not control him and finally they transferred him to emergency room here. The patient has not been getting scheduled dialysis for the last few weeks now per ER physician. He normally is oriented x3 at the senior living. Currently, he is very agitated. Majority of this history is obtained by talking to ER physician, Dr. Valencia and prior records as patient is not oriented and in fact is very agitated. When he is calm, he is not in any distress as such. PAST MEDICAL AND SURGICAL HISTORY: End-stage renal disease, on hemodialysis; hypertension; dyslipidemia; dialysis access procedures; peripheral neuropathy; diabetes mellitus type 2; right bilateral below-knee amputation. CURRENT MEDICATIONS: Per [facility] notes, the patient is on: 1. Vitamin B12 500 mcg daily. 2. Tylenol No. 3 q.6 hourly p.r.n. 3. Gabapentin 100 mg p.o. at noon. 4. Atorvastatin 10 mg p.o. q.p.m. ALLERGIES: NO KNOWN DRUG ALLERGIES. PERSONAL HISTORY: Per prior records, does not abuse alcohol or drugs. He is a senior living resident and it is unclear from which senior living he is from. We are trying to ascertain the same and obtain records from there. FAMILY HISTORY: Cannot be obtained as patient is not oriented and is agitated at present. I am unable to reach his family members either. Code status is presumed to be full. REVIEW OF SYSTEMS: Cannot be obtained as patient is agitated and is not oriented. PHYSICAL EXAMINATION: GENERAL: The patient is an 84-year-old male, who is currently psychotic and agitated. VITAL SIGNS: Blood pressure 190/84, pulse 90 per minute. The patient is afebrile. HEENT: Eyes; the patient keeps closing his right eye. The left pupil is reacting to light. When tried to pry open his right eyelid, the patient gets even more agitated and tries to swing at me. NECK: Supple. There is no elevated JVD. CARDIOVASCULAR: S1 and S2 heard. Loud S2. No murmur. RESPIRATORY: Air entry 1+ bilateral. No rhonchi or wheezes. ABDOMEN: The patient likely has tenderness. When tried to palpate his abdomen, patient tries to take my hand off. On repeated attempts, the patient gets even more agitated. Bowel sounds are heard. EXTREMITIES: The patient has bilateral below-knee amputation. Has mild edema in both thighs. VASCULAR: Peripheral pulses are 1+ in the upper extremities. No ischemic ulcers or gangrene seen. CENTRAL NERVOUS SYSTEM: No gross focal motor deficits seen. The patient has bilateral BKA with a prosthesis in place. He is trying to move both his thighs. He also moves both his upper extremities. These are not on purpose. He is agitated at present. PSYCHIATRIC: Cannot be assessed as he is agitated at present. LABORATORY DATA: CT brain done showed no acute intracranial abnormality. Has cortical atrophy and chronic small-vessel ischemic changes seen. Chest x-ray done shows mild peripheral vascular congestion. White count of 6, H and H 11 and 32, platelet count 206, MCV is 94 with 69% neutrophils. Potassium 5.2, serum bicarb 19, BUN 75, creatinine 7.6, serum glucose 140. Liver enzymes within normal limits. Albumin 3.6. BNP 223. EKG done shows sinus rhythm. CLINICAL IMPRESSION AND PLAN: Patient will be admitted to medical floor for acute metabolic encephalopathy, volume overload. It is unclear if the patient has abdominal pain as such, but he refuses to be examined. We will obtain a CT of the abdomen and pelvis in view of prior CAT scan done in September revealing dilated biliary ducts with cholelithiasis. His LFTs look normal at present. We will obtain a COVID-19 PCR. The patient is scheduled for hemodialysis and Dr. King is consulted. We will continue his Lipitor, small dose of Lopressor, hydralazine as before. I am unable to reach his family, Ms. Cecil Shea on the number provided on [employer] with [phone]. We will try to reach family on the [facility], dialysis sheet if one is available. His overall prognosis is guarded. Job ID: [id number] [facility]
--- NOTE | 2020-01-08 19:16 | CON ---
DATE OF CONSULTATION: 01/08/2020 CONSULTING PHYSICIAN: Dr. Valencia. REASON FOR CONSULTATION: End-stage renal disease evaluation and care. REASON FOR ADMISSION: Altered mentation. HISTORY OF PRESENT ILLNESS: An 84-year-old male with history of end-stage renal disease, hypertension, hyperlipidemia, came to the hospital with altered mentation. The patient usually gets dialysis, but today he was very agitated to the point where he was doing getting himself and staff and he was sent to the ER for further evaluation. The patient is not able to give a good history, is agitated and not able to get a good history even with a phlebotomy specialist. PAST MEDICAL HISTORY: Positive for end-stage renal disease, hypertension, hyperlipidemia, peripheral neuropathy, and type 2 diabetes. PAST SURGICAL HISTORY: Bilateral below-knee amputations, dialysis access procedure. HOME MEDICATIONS: Reviewed. ALLERGIES: NO KNOWN DRUG ALLERGIES. SOCIAL HISTORY: No smoking, alcohol, or illicit drugs. Lives in care home. FAMILY HISTORY: Not available. ALLERGIES: NO KNOWN DRUG ALLERGIES. REVIEW OF SYSTEMS: Could not be obtained due to altered mentation. PHYSICAL EXAMINATION: GENERAL: This is an elderly male, who is very agitated. VITAL SIGNS: Reviewed. HEENT: Atraumatic, normocephalic. Oral mucosa moist. NECK: Supple. CV: S1 and S2. Rate and rhythm regular. RESPIRATORY: Clear. GI: Abdomen is soft. MUSCULOSKELETAL: No tenderness. No edema. DERMATOLOGIC: No skin rash. NEUROLOGIC: Confused and agitated. LABORATORY DATA: Hemoglobin 11.0. Potassium 5.2, BUN is 75, and creatinine 7.6. ASSESSMENT AND PLAN: 1. End-stage renal disease. Plan to have dialysis. 2. Hyperkalemia. 3. Acidosis. We will have dialysis. 4. Anemia of chronic disease. 5. Hypertension. 6. Altered mentation. 7. Mild hypoalbuminemia. Plan is to have dialysis to see if his mentation will improve. We will continue to monitor. Agree with further evaluation to rule out any pain or other causes of his change in mental status. We will continue dialysis Friday, , and Friday as tolerated. Thank you for the consult. We will follow. Job ID: [id number]
[2020-01-08] MEDS ORDERED: Lorazepam 2 MG/ML VIAL IM PRN (19:50)
[2020-01-08 20:46] VITALS: BMI 27.9
[2020-01-08] MEDS: Heparin 5,000 UNITS/ML VIAL SC SCH (22:30)
[2020-01-08] MEDS: hydrALAZINE 25 MG TAB PO SCH (22:30)
[2020-01-08] MEDS: Famotidine 20 MG TAB PO SCH (22:30)
[2020-01-08] MEDS: Atorvastatin Calcium 10 MG TAB PO SCH (22:30)
[2020-01-08] MEDS: Metoprolol Tartrate 25 MG TAB PO SCH (22:30)
[2020-01-09] MEDS ORDERED: Ziprasidone 20 MG VIAL IM SCH (00:45)
[2020-01-09] MEDS ORDERED: Sterile Water 10 ML VIAL FS SCH (00:45)
[2020-01-09 06:23] LABS: #Eosinphils 0.2 thou/uL (0.0-0.7); #Lymphocytes 1.6 thou/uL (1.20-3.40); #Monocytes 0.4 thou/uL (0.11-0.59); #Neutrophils 4.5 thou/uL (1.40-6.50); %Basophils 0.5 % (0.0-1.0); %Eosinophils 2.3 % (0.0-10.0); %Lymphocytes 23.6 % (21.0-51.0); %Monocytes 6.3 % (0.0-10.0); %Neutrophils 67.2 % (42.0-75.0); Hemoglobin 11.4 g/dL (14.0-18.0); Mean Corpuscular HGB CONC 33.6 g/dL (32.0-36.0); Mean Corpuscular Hemoglobin 32.4 pg (27.0-31.0); Mean Corpuscular Volume 96.3 fL (78.0-98.0); Platelet Count 210 thou/uL (130-400); RBC Distribution Width 13.4 % (11.5-14.5); Red Blood Cell (RBC) Count 3.51 mill/uL (4.70-6.10); White Blood Cell (WBC) Count 6.8 thou/uL (4.8-10.8)
[2020-01-09 06:45] LABS: ALT (SGPT) 17 U/L (8-55); AST (SGOT) 17 U/L (5-34); Albumin 3.4 g/dL (3.4-4.8); Alkaline Phosphatase 92 U/L (40-110); Anion Gap 15 mmol/L (10-20); BUN (Urea Nitrogen) 31 mg/dL (8.4-25.7); Bilirubin, Total 0.5 mg/dL (0.2-1.2); Calc. Creatinine Clearance 12 mL/min (70-130); Calcium 8.5 mg/dL (7.8-10.44); Carbon Dioxide 23 mmol/L (23-31); Chloride 103 mmol/L (98-107); Glucose 91 mg/dL (83-110); Potassium 4.2 mmol/L (3.5-5.1); Protein, Total 6.4 g/dL (5.8-8.1); Sodium 137 mmol/L (136-145)
--- NOTE | 2020-01-09 08:40 | PRG ---
DATE OF SERVICE: 01/09/2020 SUBJECTIVE: The patient is somnolent. OBJECTIVE: GENERAL: Elderly male, somnolent. VITAL SIGNS: Temperature 97.9, pulse 74, respiratory rate 16, blood pressure 134/67. LABORATORY DATA: Potassium 4.2, BUN 31, creatinine is 4.6. ASSESSMENT AND PLAN: 1. End-stage renal disease, continue dialysis, TTS. 2. Hyperkalemia. 3. Altered mentation. 4. Acidosis. 5. Hypoalbuminemia. The patient might need some psychotropic medications outpatient which should help prevent these episodes and continue on dialysis as tolerated. Job ID: [id number]
--- NOTE | 2020-01-09 08:56 | CT ---
CT Abdomen Pelvis WO Con: 01/08/2020 4:24 AM HISTORY: Abdominal pain and altered mental status. Prior cholelithiasis COMPARISON: 10/07/2019 TECHNIQUE: Multiple contiguous axial images were obtained and a CT of the abdomen and pelvis without IV contrast . Coronal and sagittal reformats were performed. FINDINGS: This examination is limited for the evaluation of solid organs and vascular structures due to the lac k of intravenous contrast. Lower Chest: Large stable calcified pleural plaque in the left thorax. Calcifications in the coronary arteries. Abdomen: Liver: 2.4 cm hypodensity in the right lobe cannot be characterized without IV contrast. This appears larger than the prior examination. Bile Ducts: Normal caliber. Gallbladder: Dependent gallstones Pancreas: within normal limits. Spleen: Scattered calcified granulomas. Adrenals: within normal limits. Kidneys: Small subcentimeter hypodensities may represent cysts. Pelvis: Reproductive Organs: No pelvic masses. Ureters: within normal limits. Bladder: within normal limits. Bowel: Normal caliber. Mesenteric Lymph Nodes: No enlarged mesenteric lymph nodes. Peritoneum: No ascites or free air, no fluid collection. Vessels: Normal caliber aorta Retroperitoneum: within normal limits. Abdominal Wall: Small stable left fat-containing inguinal hernia Bones: Degenerative changes in the spine. IMPRESSION: 1. Cholelithiasis 2. Hepatic hypodensity appears larger than on the prior examination, but this may have demonstrated e nhancement on the prior exam making it appear smaller. An MRI of the abdomen is recommended for liver mass protocol for further evaluation.
[2020-01-09] MEDS ORDERED: FLU VACC QS2020-21(65YR UP)/PF 240 MCG/0.7 ML SYRINGE IM ONE (09:00)
[2020-01-09] MEDS: hydrALAZINE 25 MG TAB PO SCH ×2 (09:17→20:21)
[2020-01-09] MEDS: Metoprolol Tartrate 25 MG TAB PO SCH ×2 (09:18→20:21)
[2020-01-09] MEDS: hydrALAZINE 20 MG/ML VIAL SLOW IVP PRN (09:44)
[2020-01-09] MEDS: Heparin 5,000 UNITS/ML VIAL SC SCH ×2 (10:09→20:29)
[2020-01-09] MEDS ORDERED: HumaLOG 300 UNITS/3 ML VIAL SC PRN (15:47)
[2020-01-09] MEDS ORDERED: Dextrose 5% in Water 1,000 ML IV PRN (15:47)
[2020-01-09] MEDS ORDERED: Dextrose 50% Abboject 50 ML SYRINGE SLOW IVP PRN (15:47)
--- NOTE | 2020-01-09 18:11 | PDOC.HOSPP ---
- Subjective Encounter Date: 01/09/20 Encounter Time: 10:00 Subjective: Patient seen for follow-up regarding acute metabolic encephalopathy. He is opening eyes to touch but not answering questions. Has apneic spells while asleep. - Objective Vital Signs & Weight: Vital Signs (12 hours) Temp Pulse Resp BP BP Pulse Ox 01/09/20 15:38 83 16 169/75 H 01/09/20 11:17 97.6 F 86 16 153/69 H 96 01/09/20 09:44 74 01/09/20 09:17 74 01/09/20 07:32 97.9 F 74 16 181/64 H 100 Weight Weight 168 lb Result Diagrams: 01/09/20 06:06 01/09/20 06:06 Additional Labs: I reviewed patient's labs and MAR Hospitalist ROS - Review of Systems ROS unobtainable: due to mental status - Medication Medications: Active Medications Generic Name Dose Route Start Last Admin Trade Name Freq PRN Reason Stop Dose Admin Atorvastatin Calcium 10 mg 01/08/20 21:00 01/08/20 22:30 Atorvastatin Calcium 10 Mg Tab PO Not Given HS CR Famotidine 20 mg 01/08/20 21:00 01/08/20 22:30 Famotidine 20 Mg Tab PO Not Given QPM CR Heparin Sodium (Porcine) 5,000 units 01/08/20 21:00 01/09/20 10:09 Heparin 5,000 Units/Ml Vial SC Not Given BID CR Hydralazine HCl 25 mg 01/08/20 21:00 01/09/20 09:17 Hydralazine 25 Mg Tab PO Not Given BID CR Hydralazine HCl 10 mg 01/09/20 03:00 01/09/20 09:44 Hydralazine 20 Mg/Ml Vial SLOW IVP 10 mg Q4H PRN Administration SBP Greater Than 180 Metoprolol Tartrate 25 mg 01/08/20 21:00 01/09/20 09:18 Metoprolol Tartrate 25 Mg Tab PO Not Given BID CR - Exam General - other findings: Sleepy but arousable Eye: anicteric sclera ENT: moist mucosa Neck: supple Heart: RRR Respiratory: CTAB Gastrointestinal: soft, non-tender Skin: no rashes Neurological - other findings: Unable to assess Psychiatric: lethargic Hosp A/P (1) Acute metabolic encephalopathy Code(s): G93.41 - METABOLIC ENCEPHALOPATHY Status: Acute (2) Volume overload Code(s): E87.70 - FLUID OVERLOAD, UNSPECIFIED Status: Acute (3) ESRD (end stage renal disease) on dialysis Code(s): N18.6 - END STAGE RENAL DISEASE; Z99.2 - DEPENDENCE ON RENAL DIALYSIS Status: Chronic (4) DM type 2 (diabetes mellitus, type 2) Status: Chronic (5) HTN (hypertension) Code(s): I10 - ESSENTIAL (PRIMARY) HYPERTENSION Status: Chronic - Plan Etiology of acute metabolic encephalopathy is unclear at this time, could be related to psychiatric issues as well. Nephrology service following for hemodialysis. Hyperkalemia has resolved. Continue Accu-Cheks and insulin sliding scale. OT/PT eval and treat. As needed IV antihypertensives. Patient will benefit from polysomnography as outpatient. COVID-19 test pending. DVT prophylaxis with SCDs.
[2020-01-09] MEDS: Atorvastatin Calcium 10 MG TAB PO SCH (20:24)
[2020-01-09] MEDS: Famotidine 20 MG TAB PO SCH (20:24)
[2020-01-10 06:27] LABS: #Eosinphils 0.2 thou/uL (0.0-0.7); #Lymphocytes 1.9 thou/uL (1.20-3.40); #Monocytes 0.5 thou/uL (0.11-0.59); #Neutrophils 4.3 thou/uL (1.40-6.50); %Basophils 0.3 % (0.0-1.0); %Eosinophils 2.6 % (0.0-10.0); %Lymphocytes 28.1 % (21.0-51.0); %Monocytes 6.7 % (0.0-10.0); %Neutrophils 62.4 % (42.0-75.0); Hemoglobin 12.5 g/dL (14.0-18.0); Mean Corpuscular HGB CONC 32.3 g/dL (32.0-36.0); Mean Corpuscular Hemoglobin 31.2 pg (27.0-31.0); Mean Corpuscular Volume 96.5 fL (78.0-98.0); Mean Platelet Volume 6.9 fL (7.4-10.4); Platelet Count 216 thou/uL (130-400); RBC Distribution Width 13.4 % (11.5-14.5); Red Blood Cell (RBC) Count 4.01 mill/uL (4.70-6.10); White Blood Cell (WBC) Count 6.9 thou/uL (4.8-10.8)
[2020-01-10 06:45] LABS: Anion Gap 16 mmol/L (10-20); BUN (Urea Nitrogen) 40 mg/dL (8.4-25.7); Calc. Creatinine Clearance 10 mL/min (70-130); Calcium 8.5 mg/dL (7.8-10.44); Carbon Dioxide 24 mmol/L (23-31); Chloride 103 mmol/L (98-107); Glucose 86 mg/dL (83-110); Sodium 138 mmol/L (136-145)
[2020-01-10] MEDS: hydrALAZINE 20 MG/ML VIAL SLOW IVP PRN (10:14)
--- NOTE | 2020-01-10 10:15 | PRG ---
DATE OF SERVICE: 01/10/2020 SUBJECTIVE: The patient is more awake today. No nausea or vomiting. No fever or chills. OBJECTIVE: GENERAL: This is a well-built elderly male, in no apparent distress. VITAL SIGNS: Temperature , pulse 79, respiratory rate 18, blood pressure 145/55. LABORATORY DATA: Potassium 5.0, BUN is 40, creatinine is 5.5. ASSESSMENT AND PLAN: 1. End-stage renal disease. Continue dialysis, TTS as tolerated. 2. Hyperkalemia. 3. Altered mentation. 4. Acidosis. 5. Hypoalbuminemia. Encourage protein intake. We will continue dialysis as tolerated. Job ID: [id number]
[2020-01-10] MEDS: Heparin 5,000 UNITS/ML VIAL SC SCH ×2 (10:22→22:27)
[2020-01-10] MEDS: hydrALAZINE 25 MG TAB PO SCH ×2 (10:23→22:27)
[2020-01-10] MEDS: Metoprolol Tartrate 25 MG TAB PO SCH ×2 (10:23→22:27)
--- NOTE | 2020-01-10 16:13 | PDOC.HOSPP ---
- Subjective Encounter Date: 01/10/20 Encounter Time: 09:00 Subjective: Patient seen for follow-up regarding acute metabolic encephalopathy. He is more alert today. - Objective Vital Signs & Weight: Vital Signs (12 hours) Temp Pulse Resp BP BP Pulse Ox 01/10/20 15:25 82 16 130/71 96 01/10/20 12:09 97.3 F L 84 16 161/70 H 98 01/10/20 10:23 74 01/10/20 10:14 74 01/10/20 08:45 97 01/10/20 08:33 74 16 182/83 H Weight Admit Weight 168 lb Weight 168 lb I&O: 01/09/20 01/10/20 01/11/20 06:59 06:59 06:59 Intake Total 320 Balance 320 Result Diagrams: 01/10/20 05:38 01/10/20 05:38 Additional Labs: Accuchecks 01/10/20 01/09/20 05:38 23:19 POC Glucose 83 91 Labs and MAR reviewed by de Hospitalist ROS - Review of Systems Cardiovascular: denies: chest pain, palpitations, orthopnea, paroxysmal noc. d yspnea, edema, light headedness Gastrointestinal: denies: nausea, vomiting, abdominal pain, diarrhea, constipation, melena, hematochezia - Medication Medications: Active Medications Generic Name Dose Route Start Last Admin Trade Name Freq PRN Reason Stop Dose Admin Atorvastatin Calcium 10 mg 01/08/20 21:00 01/09/20 20:24 Atorvastatin Calcium 10 Mg Tab PO 10 mg HS CR Administration Famotidine 20 mg 01/08/20 21:00 01/09/20 20:24 Famotidine 20 Mg Tab PO 20 mg QPM CR Administration Heparin Sodium (Porcine) 5,000 units 01/08/20 21:00 01/10/20 10:22 Heparin 5,000 Units/Ml Vial SC Not Given BID CR Hydralazine HCl 25 mg 01/08/20 21:00 01/10/20 10:23 Hydralazine 25 Mg Tab PO Not Given BID CR Hydralazine HCl 10 mg 01/09/20 03:00 01/10/20 10:14 Hydralazine 20 Mg/Ml Vial SLOW IVP 10 mg Q4H PRN Administration SBP Greater Than 180 Metoprolol Tartrate 25 mg 01/08/20 21:00 01/10/20 10:23 Metoprolol Tartrate 25 Mg Tab PO Not Given BID CR - Exam General Appearance: awake alert Eye: anicteric sclera ENT: moist mucosa Neck: supple Heart: RRR Respiratory: CTAB Gastrointestinal: soft Skin: no rashes Psychiatric - other findings: Unable to assess Hosp A/P (1) Acute metabolic encephalopathy Code(s): G93.41 - METABOLIC ENCEPHALOPATHY Status: Acute (2) Volume overload Code(s): E87.70 - FLUID OVERLOAD, UNSPECIFIED Status: Acute (3) ESRD (end stage renal disease) on dialysis Code(s): N18.6 - END STAGE RENAL DISEASE; Z99.2 - DEPENDENCE ON RENAL DIALYSIS Status: Chronic (4) DM type 2 (diabetes mellitus, type 2) Status: Chronic (5) HTN (hypertension) Code(s): I10 - ESSENTIAL (PRIMARY) HYPERTENSION Status: Chronic - Plan Acute metabolic encephalopathy appears to have improved. Etiology of acute metabolic encephalopathy is unclear at this time, could be related to uremia or psychiatric issues. Continue with dialysis per nephrology service. Continue Accu-Cheks and insulin sliding scale. OT/PT eval and treat. As needed IV antihypertensives. Patient will benefit from polysomnography as outpatient. COVID-19 test pending. DVT prophylaxis with SCDs.
[2020-01-10] MEDS: Famotidine 20 MG TAB PO SCH (22:27)
[2020-01-10] MEDS: Atorvastatin Calcium 10 MG TAB PO SCH (22:27)
--- NOTE | 2020-01-11 09:37 | PRG ---
DATE OF SERVICE: 01/11/2020 SUBJECTIVE: Patient was seen and examined at bedside and overnight events noted. Patient denies any shortness of breath or chest pain or palpitation. No history of nausea or vomiting or diarrhea or fever or chills or cramps. OBJECTIVE: General: This is a well-built male, in no apparent distress. Vital Signs: Temperature 97.2. Heart Rate 84. Respiratory rate . Blood pressure 133/75. HEENT: Atraumatic, normocephalic. Oral mucosa is moist. Neck: Supple. Cardiovascular: S1, S2 heard. Rate and rhythm regular. Respiratory: Clear to auscultation. Gastrointestinal: Abdomen is soft. Musculoskeletal: No tenderness. No edema. Dermatologic: No skin rash. Neurologic: Alert and awake and oriented x3. No focal neurologic deficits. Moving all the extremities. Psychiatric: Mood and affect normal. LABORATORY DATA: No labs done today. ASSESSMENT AND PLAN: 1. End-stage renal disease. We will have dialysis today and TTS as tolerated. 2. Hyperkalemia. 3. Altered mental status. 4. Acidosis. 5. Hypoalbuminemia. We will have dialysis as tolerated. Job ID: [id number]
[2020-01-11] MEDS: Heparin 5,000 UNITS/ML VIAL SC SCH ×2 (10:25→21:52)
[2020-01-11] MEDS: Metoprolol Tartrate 25 MG TAB PO SCH ×2 (10:25→21:48)
[2020-01-11] MEDS: hydrALAZINE 25 MG TAB PO SCH ×2 (10:25→21:47)
[2020-01-11] MEDS ORDERED: Haloperidol Lactate 5 MG/ML VIAL IM PRN (10:30)
[2020-01-11] MEDS ORDERED: Haloperidol Lactate 5 MG/ML VIAL IM SCH (10:45)
[2020-01-11] MEDS ORDERED: Ziprasidone 20 MG VIAL IM PRN (14:38)
[2020-01-11] MEDS ORDERED: Sterile Water 10 ML VIAL FS PRN (14:45)
[2020-01-11 15:39] LABS: #Eosinphils 0.1 thou/uL (0.0-0.7); #Lymphocytes 1.5 thou/uL (1.20-3.40); #Monocytes 0.4 thou/uL (0.11-0.59); %Basophils 0.7 % (0.0-1.0); %Eosinophils 2.3 % (0.0-10.0); %Lymphocytes 25.1 % (21.0-51.0); %Monocytes 6.3 % (0.0-10.0); %Neutrophils 65.6 % (42.0-75.0); Hemoglobin 11.6 g/dL (14.0-18.0); Mean Corpuscular HGB CONC 33.5 g/dL (32.0-36.0); Mean Corpuscular Hemoglobin 32.1 pg (27.0-31.0); Mean Corpuscular Volume 95.9 fL (78.0-98.0); Mean Platelet Volume 6.5 fL (7.4-10.4); Platelet Count 170 thou/uL (130-400); Red Blood Cell (RBC) Count 3.61 mill/uL (4.70-6.10); White Blood Cell (WBC) Count 6.1 thou/uL (4.8-10.8)
[2020-01-11 16:03] LABS: Anion Gap 15 mmol/L (10-20); BUN (Urea Nitrogen) 55 mg/dL (8.4-25.7); Calc. Creatinine Clearance 8 mL/min (70-130); Carbon Dioxide 23 mmol/L (23-31); Chloride 105 mmol/L (98-107); Glucose 85 mg/dL (83-110); Potassium 4.8 mmol/L (3.5-5.1); Sodium 138 mmol/L (136-145)
--- NOTE | 2020-01-11 18:47 | PDOC.HOSPP ---
- Subjective Encounter Date: 01/11/20 Encounter Time: 11:30 Subjective: Patient seen for follow-up regarding encephalopathy. He is more alert today. He is not answering questions, could not complete review of systems. - Objective Vital Signs & Weight: Vital Signs (12 hours) Temp Pulse Resp BP BP Pulse Ox 01/11/20 16:38 97.6 F 83 18 122/90 100 01/11/20 10:25 92 01/11/20 07:00 92 133/75 Weight Admit Weight 168 lb Weight 168 lb I&O: 01/10/20 01/11/20 01/12/20 06:59 06:59 06:59 Intake Total 320 Balance 320 Result Diagrams: 01/11/20 15:29 01/11/20 15:29 Additional Labs: Accuchecks 01/11/20 07:33 POC Glucose 82 I reviewed patient's labs and MAR Hospitalist ROS - Review of Systems ROS unobtainable: due to mental status - Medication Medications: Active Medications Generic Name Dose Route Start Last Admin Trade Name Freq PRN Reason Stop Dose Admin Atorvastatin Calcium 10 mg 01/08/20 21:00 01/10/20 22:27 Atorvastatin Calcium 10 Mg Tab PO Not Given HS CR Famotidine 20 mg 01/08/20 21:00 01/10/20 22:27 Famotidine 20 Mg Tab PO Not Given QPM CR Heparin Sodium (Porcine) 5,000 units 01/08/20 21:00 01/11/20 10:25 Heparin 5,000 Units/Ml Vial SC Not Given BID CR Hydralazine HCl 25 mg 01/08/20 21:00 01/11/20 10:25 Hydralazine 25 Mg Tab PO Not Given BID CR Hydralazine HCl 10 mg 01/09/20 03:00 01/10/20 10:14 Hydralazine 20 Mg/Ml Vial SLOW IVP 10 mg Q4H PRN Administration SBP Greater Than 180 Metoprolol Tartrate 25 mg 01/08/20 21:00 01/11/20 10:25 Metoprolol Tartrate 25 Mg Tab PO Not Given BID CR - Exam General Appearance: awake alert Eye: anicteric sclera Neck: supple Heart: RRR Respiratory: CTAB Gastrointestinal: soft, non-tender Skin: no rashes Psychiatric - other findings: Unable to assess Hosp A/P (1) Acute metabolic encephalopathy Code(s): G93.41 - METABOLIC ENCEPHALOPATHY Status: Acute (2) Volume overload Code(s): E87.70 - FLUID OVERLOAD, UNSPECIFIED Status: Acute (3) ESRD (end stage renal disease) on dialysis Code(s): N18.6 - END STAGE RENAL DISEASE; Z99.2 - DEPENDENCE ON RENAL DIALYSIS Status: Chronic (4) DM type 2 (diabetes mellitus, type 2) Status: Chronic (5) HTN (hypertension) Code(s): I10 - ESSENTIAL (PRIMARY) HYPERTENSION Status: Chronic - Plan Acute metabolic encephalopathy appears to have improved. As needed Jina for agitation. Nephrology service following for dialysis. Continue Accu-Cheks and insulin sliding scale. OT/PT eval and treat. As needed IV antihypertensives. Patient probably has obstructive sleep apnea syndrome, will benefit from polysomnography as outpatient. COVID-19 test pending. DVT prophylaxis with SCDs.
[2020-01-11] MEDS: Atorvastatin Calcium 10 MG TAB PO SCH (21:47)
[2020-01-11] MEDS: Famotidine 20 MG TAB PO SCH (21:47)
[2020-01-12 06:46] LABS: Hemoglobin 11.9 g/dL (14.0-18.0); Mean Corpuscular HGB CONC 33.1 g/dL (32.0-36.0); Mean Corpuscular Hemoglobin 31.3 pg (27.0-31.0); Mean Corpuscular Volume 94.8 fL (78.0-98.0); Mean Platelet Volume 7.2 fL (7.4-10.4); Platelet Count 190 thou/uL (130-400); Red Blood Cell (RBC) Count 3.78 mill/uL (4.70-6.10); White Blood Cell (WBC) Count 5.4 thou/uL (4.8-10.8)
[2020-01-12 06:50] LABS: Anion Gap 17 mmol/L (10-20); BUN (Urea Nitrogen) 59 mg/dL (8.4-25.7); Calc. Creatinine Clearance 8 mL/min (70-130); Calcium 8.3 mg/dL (7.8-10.44); Carbon Dioxide 20 mmol/L (23-31); Chloride 106 mmol/L (98-107); Glucose 75 mg/dL (83-110); Sodium 138 mmol/L (136-145)
[2020-01-12 08:45] LABS: Band 3 % (5-11); Eosinophils 2 % (0-10); Lymphocytes 33 % (21-51); MDiff Complete? YES; Monocytes 4 % (0-10); Neutrophil 58 % (42-75); Platelet Morphology Comment Appears Adequate; Polychromasia SLIGHT = 2-3 cells (100X) (0-2/hpf)
--- NOTE | 2020-01-12 09:28 | PRG ---
DATE OF SERVICE: 01/12/2020 OBJECTIVE: GENERAL: This is a well-built male, in no apparent distress. VITAL SIGNS: . LABORATORY DATA: Potassium 5.0, BUN is 59, creatinine is 7.5. ASSESSMENT AND PLAN: 1. End-stage renal disease. We will continue on dialysis. The patient could not have dialysis yesterday as the patient was agitated. 2. Altered mentation. 3. Hypertension. 4. Anemia of chronic disease. Continue on dialysis as tolerated. Job ID: [id number]
[2020-01-12] MEDS: Metoprolol Tartrate 25 MG TAB PO SCH ×2 (09:30→20:41)
[2020-01-12] MEDS: hydrALAZINE 25 MG TAB PO SCH ×2 (09:30→20:43)
[2020-01-12] MEDS: Ziprasidone 20 MG VIAL IM PRN (09:30)
[2020-01-12] MEDS: Heparin 5,000 UNITS/ML VIAL SC SCH ×2 (09:30→20:44)
--- NOTE | 2020-01-12 17:46 | PDOC.HOSPP ---
- Subjective Encounter Date: 01/12/20 Encounter Time: 08:30 Subjective: Patient seen for follow-up regarding acute metabolic encephalopathy. He is sleepy but arousable, no complaints. - Objective Vital Signs & Weight: Vital Signs (12 hours) Temp Pulse Resp BP Pulse Ox 01/12/20 15:58 97.4 F L 89 18 121/39 L 97 01/12/20 09:30 86 01/12/20 07:10 97.5 F L 86 16 131/51 L 95 Weight Admit Weight 168 lb Weight 168 lb I&O: 01/11/20 01/12/20 01/13/20 06:59 06:59 06:59 Intake Total 120 Balance 120 Result Diagrams: 01/12/20 05:58 01/12/20 05:58 Additional Labs: Labs and MAR reviewed by [place] Hospitalist ROS - Review of Systems Cardiovascular: denies: chest pain, palpitations, orthopnea, paroxysmal noc. dyspnea, edema, light headedness Gastrointestinal: denies: nausea, vomiting, abdominal pain, diarrhea, constipation, melena, hematochezia - Medication Medications: Active Medications Generic Name Dose Route Start Last Admin Trade Name Freq PRN Reason Stop Dose Admin Atorvastatin Calcium 10 mg 01/08/20 21:00 01/11/20 21:47 Atorvastatin Calcium 10 Mg Tab PO Not Given HS CR Famotidine 20 mg 01/08/20 21:00 01/11/20 21:47 Famotidine 20 Mg Tab PO Not Given QPM CR Heparin Sodium (Porcine) 5,000 units 01/08/20 21:00 01/12/20 09:30 Heparin 5,000 Units/Ml Vial SC 5,000 units BID CR Administration Hydralazine HCl 25 mg 01/08/20 21:00 01/12/20 09:30 Hydralazine 25 Mg Tab PO Not Given BID CR Hydralazine HCl 10 mg 01/09/20 03:00 01/10/20 10:14 Hydralazine 20 Mg/Ml Vial SLOW IVP 10 mg Q4H PRN Administration SBP Greater Than 180 Metoprolol Tartrate 25 mg 01/08/20 21:00 01/12/20 09:30 Metoprolol Tartrate 25 Mg Tab PO Not Given BID CR Ziprasidone 20 mg 01/11/20 18:46 01/12/20 09:30 Ziprasidone 20 Mg Vial IM 20 mg Q12H PRN Administration Agitation - Exam General Appearance: awake alert Eye: anicteric sclera ENT: moist mucosa Neck: supple Heart: RRR Respiratory: CTAB Gastrointestinal: soft, non-tender Skin: no rashes Psychiatric: normal affect, normal behavior Hosp A/P (1) Acute metabolic encephalopathy Code(s): G93.41 - METABOLIC ENCEPHALOPATHY Status: Acute (2) Volume overload Code(s): E87.70 - FLUID OVERLOAD, UNSPECIFIED Status: Acute (3) ESRD (end stage renal disease) on dialysis Code(s): N18.6 - END STAGE RENAL DISEASE; Z99.2 - DEPENDENCE ON RENAL DIALYSIS Status: Chronic (4) DM type 2 (diabetes mellitus, type 2) Status: Chronic (5) HTN (hypertension) Code(s): I10 - ESSENTIAL (PRIMARY) HYPERTENSION Status: Chronic - Plan Acute metabolic encephalopathy improving. Continue Geodon. Hemodialysis per nephrology. Continue Accu-Cheks and insulin sliding scale. OT/PT eval and treat. As needed IV antihypertensives. DVT prophylaxis with SCDs.
[2020-01-12] MEDS: Famotidine 20 MG TAB PO SCH (20:46)
[2020-01-12] MEDS: Atorvastatin Calcium 10 MG TAB PO SCH (20:46)
[2020-01-13] MEDS: Ziprasidone 20 MG VIAL IM PRN (07:29)
[2020-01-13] MEDS: Metoprolol Tartrate 25 MG TAB PO SCH ×2 (09:29→20:15)
[2020-01-13] MEDS: hydrALAZINE 25 MG TAB PO SCH ×2 (09:29→20:14)
[2020-01-13] MEDS: Heparin 5,000 UNITS/ML VIAL SC SCH ×2 (09:29→20:11)
--- NOTE | 2020-01-13 10:34 | PRG ---
DATE OF SERVICE: 01/13/2020 SUBJECTIVE: The patient was seen on dialysis, plan to have dialysis today. The patient remains somnolent. OBJECTIVE: GENERAL: Elderly male who is somnolent. VITAL SIGNS: Temperature 97.0, pulse 72, respiratory rate 14, blood pressure 111/55. HEENT: Atraumatic, normocephalic. CVS: S1, S2 heard. RESPIRATORY: Clear. MUSCULOSKELETAL: No edema. NEUROLOGIC: Somnolent. LABORATORY DATA: Potassium 5.0, BUN is 59, creatinine is 7.5. ASSESSMENT AND PLAN: 1. End-stage renal disease, plan to have dialysis today. 2. Agitation with altered mentation seems to be stable. The patient is somnolent. 3. Hypertension. 4. Anemia of chronic disease. Plan to have dialysis today. We will recommend regular use of Geodon, which seems to be helping his mentation and reduce agitation. We will follow. Job ID: [id number]
--- NOTE | 2020-01-13 15:02 | PDOC.HOSPP ---
- Subjective Encounter Date: 01/13/20 Encounter Time: 07:30 Subjective: Patient seen for follow-up regarding acute metabolic encephalopathy. He denies chest pain or shortness of breath. - Objective Vital Signs & Weight: Vital Signs (12 hours) Temp Pulse Resp BP BP Pulse Ox 01/13/20 09:29 72 01/13/20 08:00 97.0 F L 72 14 111/55 L 100 01/13/20 03:46 136/81 Weight Admit Weight 168 lb Weight 168 lb I&O: 01/12/20 01/13/20 01/14/20 06:59 06:59 06:59 Intake Total 120 30 Balance 120 30 Result Diagrams: 01/12/20 05:58 01/12/20 05:58 Additional Labs: Accuchecks 01/13/20 06:41 POC Glucose 86 I reviewed patient's labs and MAR Hospitalist ROS - Review of Systems Cardiovascular: denies: chest pain, palpitations, orthopnea, paroxysmal noc. dyspnea, edema, light headedness Gastrointestinal: denies: nausea, vomiting, abdominal pain, diarrhea, constipation, melena, hematochezia - Medication Medications: Active Medications Generic Name Dose Route Start Last Admin Trade Name Freq PRN Reason Stop Dose Admin Atorvastatin Calcium 10 mg 01/08/20 21:00 01/12/20 20:46 Atorvastatin Calcium 10 Mg Tab PO 10 mg HS CR Administration Famotidine 20 mg 01/08/20 21:00 01/12/20 20:46 Famotidine 20 Mg Tab PO 20 mg QPM CR Administration Heparin Sodium (Porcine) 5,000 units 01/08/20 21:00 01/13/20 09:29 Heparin 5,000 Units/Ml Vial SC Not Given BID CR Hydralazine HCl 25 mg 01/08/20 21:00 01/13/20 09:29 Hydralazine 25 Mg Tab PO Not Given BID CR Hydralazine HCl 10 mg 01/09/20 03:00 01/10/20 10:14 Hydralazine 20 Mg/Ml Vial SLOW IVP 10 mg Q4H PRN Administration SBP Greater Than 180 Metoprolol Tartrate 25 mg 01/08/20 21:00 01/13/20 09:29 Metoprolol Tartrate 25 Mg Tab PO Not Given BID CR Ziprasidone 20 mg 01/11/20 18:46 01/13/20 07:29 Ziprasidone 20 Mg Vial IM 20 mg Q12H PRN Administration Agitation - Exam General Appearance: awake alert Eye: anicteric sclera Heart: RRR Respiratory: CTAB Gastrointestinal: soft Skin: no rashes Psychiatric: normal affect Hosp A/P (1) Acute metabolic encephalopathy Code(s): G93.41 - METABOLIC ENCEPHALOPATHY Status: Acute (2) Volume overload Code(s): E87.70 - FLUID OVERLOAD, UNSPECIFIED Status: Acute (3) ESRD (end stage renal disease) on dialysis Code(s): N18.6 - END STAGE RENAL DISEASE; Z99.2 - DEPENDENCE ON RENAL DIALYSIS Status: Chronic (4) DM type 2 (diabetes mellitus, type 2) Status: Chronic (5) HTN (hypertension) Code(s): I10 - ESSENTIAL (PRIMARY) HYPERTENSION Status: Chronic - Plan Acute metabolic encephalopathy improved, continue as needed Geodon. Neurology following for hemodialysis. Continue Accu-Cheks and insulin sliding scale. OT/PT eval and treat. As needed IV antihypertensives. DVT prophylaxis with SCDs. Unfortunately, patient's COVID-19 test was not done. He needs a test done so he can return to [facility]. Likely discharge to [facility] facility tomorrow.
[2020-01-13 16:38] LABS: SARS-CoV-2 MS2 Positive; SARS-CoV-2 N Gene Negative; SARS-CoV-2 S Gene Negative; SARS-CoV-2 by NAA Not Detected (NotDetected); SARS-CoV-2 orf1ab Negative
[2020-01-13] MEDS ORDERED: FLU VACC QS2020-21(65YR UP)/PF 240 MCG/0.7 ML SYRINGE IM ONE (18:00)
[2020-01-13] MEDS: Famotidine 20 MG TAB PO SCH (20:14)
[2020-01-13] MEDS: Atorvastatin Calcium 10 MG TAB PO SCH (20:14)
[2020-01-14] MEDS: Heparin 5,000 UNITS/ML VIAL SC SCH (08:08)
[2020-01-14] MEDS: Metoprolol Tartrate 25 MG TAB PO SCH (08:12)
[2020-01-14] MEDS: hydrALAZINE 25 MG TAB PO SCH (08:12)
--- NOTE | 2020-01-14 08:29 | PRG ---
DATE OF SERVICE: 01/14/2020 SUBJECTIVE: The patient is seen at the bedside. The patient remains somnolent. OBJECTIVE: GENERAL: Elderly male, who is somnolent. VITAL SIGNS: Temperature 98.3, pulse 83, respiratory rate , blood pressure 134/61. HEENT: Atraumatic, normocephalic. CVS: S1 and S2 heard. RESPIRATORY: Clear. MUSCULOSKELETAL: No edema. NEUROLOGICAL: Somnolent. LABORATORY DATA: No labs done today. ASSESSMENT AND PLAN: 1. End-stage renal disease, continue dialysis. 2. Edema. 3. Hypertension. 4. Anemia of chronic disease. labs. Continue dialysis as tolerated. Job ID: [id number]
[2020-01-14 11:31] VITALS: BP 125/92
--- NOTE | 2020-01-14 11:46 | PDOC.DS.DS ---
Provider - Provider Date of Admission: 01/08/20 16:28 Date of Discharge: 01/14/20 Admitting Provider: Ca Coelho MD Consultations: Nephrology (Dr. King) Primary Care Physician: JAZMINE BECKWITH MD Course - Hospital Course Hospital Course: Discharge diagnosis: 1. Acute metabolic encephalopathy 2. Volume overload 3. Agitation 4. COVID-19 PCR test negative Hospital course: Patient is a pleasant 84-year-old gentleman who was admitted to the hospital on January 08, 2020 for acute metabolic encephalopathy, agitation and inability to have hemodialysis because of agitation. He was seen by nephrology service. He was started on Geodon as needed with improvement in his symptoms. He underwent hemodialysis during this hospitalization. He is being discharged to his long- term care facility in a stable condition. Patient had witnessed apneas while asleep during this hospitalization. He will benefit from polysomnography study as outpatient, to be done through his primary care provider's office. Discharge destination: Long-term care facility, from where patient was admitted to the hospital. Total amount of time spent coordinating this discharge: 32 minutes Resuscitation Status: 01/08/20 14:40 Resuscitation Status Routine Resuscitation Status: FULL: Full Resuscitation - Labs Lab Results: 01/12/20 05:58 01/12/20 05:58 - Physical Exam Vitals: Vital Signs (12 hours) Temp Pulse Resp BP BP Pulse Ox 01/14/20 11:25 97.5 F L 84 16 125/92 H 100 01/14/20 08:12 80 01/14/20 08:08 100 01/14/20 07:35 97.5 F L 80 16 128/63 100 01/14/20 04:31 98.3 F 83 20 134/61 99 Weight Admit Weight 168 lb Weight 168 lb Physical Exam: The patient was seen and examined on the day of discharge. Patient denies chest pain or shortness of breath. Vital signs are stable. S1 and S2 are heard. Lungs are clear to auscultation bilaterally. Problem - Problem (1) Acute metabolic encephalopathy Code(s): G93.41 - METABOLIC ENCEPHALOPATHY Status: Acute (2) Volume overload Code(s): E87.70 - FLUID OVERLOAD, UNSPECIFIED Status: Acute (3) ESRD (end stage renal disease) on dialysis Code(s): N18.6 - END STAGE RENAL DISEASE; Z99.2 - DEPENDENCE ON RENAL DIALYSIS Status: Chronic (4) DM type 2 (diabetes mellitus, type 2) Status: Chronic (5) HTN (hypertension) Code(s): I10 - ESSENTIAL (PRIMARY) HYPERTENSION Status: Chronic Plan - Discharge Medications Home Medications: Medication Instructions Recorded Confirmed Type Atorvastatin Calcium [Lipitor] 10 mg PO HS 03/30/17 01/08/20 History Gabapentin 100 mg PO TID 03/30/17 01/08/20 History hydrALAZINE [Apresoline] 25 mg PO TID 03/30/17 01/08/20 History Acetaminophen [Tylenol] 650 mg PO PRN PRN 01/08/20 01/08/20 History Calcium Acetate 2 tablet PO QAM-WM 01/08/20 01/08/20 History Cyanocobalamin (Vitamin B-12) 500 mcg PO DAILY 01/08/20 01/08/20 History [Vitamin B-12] Folic Acid/Vit B Complex and C 0.8 mg PO QAM 01/08/20 01/08/20 History [Renal Vitamin Tablet] Hydrocortisone 1% Cream 1 applic TOP TID PRN 01/08/20 01/08/20 History Insulin Aspart [Novolog Flexpen] 100 unit SQ TID 01/08/20 01/08/20 History Loperamide HCl [Imodium] 2 mg PO ASDIR PRN 01/08/20 01/08/20 History Magnesium Hydroxide [Milk of 2,400 mg PO Q8H PRN 01/08/20 01/08/20 History Magnesia] Metoprolol Tartrate 25 mg PO BID 01/08/20 01/08/20 History Nystatin [Nystatin Cream] 1 applic TOP BID PRN 01/08/20 01/08/20 History Nystatin [Nystatin Powder] 1 applic TOP BID PRN 01/08/20 01/08/20 History guaiFENesin [Guaifenesin] 10 ml PO Q4HR PRN 01/08/20 01/08/20 History Ziprasidone [Geodon] 20 mg IM DAILY PRN vial 01/14/20 Rx Allergies: No Known Drug Allergies Allergy (Verified 04/30/19 14:46) - Discharge Instructions Discharge Instructions:: Dialysis Friday, , Friday. Follow up with primary care provider in 3 days. Renal, high protein diet as tolerated. Accuchecks AC&HS CPAP @ NIGHT - Follow up Plan Referrals: JAZMINE BECKWITH [Primary Care Provider] - 3 Days Anusha King MD [Active] - (No need to follow up. Call for questions or concerns.) Disposition: HOME Quality - Care Measures CORE MEASURES:: N/A
[2020-01-14 15:50] VITALS: TEMP 97.7
--- NOTE | 2020-01-15 14:52 | EKG ---
Test Reason : Blood Pressure : / mmHG Vent. Rate : 075 BPM Atrial Rate : 075 BPM P-R Int : 206 ms QRS Dur : 082 ms QT Int : 382 ms P-R-T Axes : 080 003 036 degrees QTc Int : 426 ms Normal sinus rhythm Normal ECG Confirmed by LEILA MICHEL MD ([id number]), business editor JUWAN COMBS ([id number]) on 01/15/2020 2:52:27 PM Referred By: Confirmed By:LEILA MICHEL MD
--- NOTE | 2020-01-17 21:34 | PQF ---
CLINICAL DOCUMENTATION CLARIFICATION FORM: Dear : Jagdish Israel Date / Time: 01/18/2020 Please exercise your independent, professional judgment in responding to the clarification form. Clinical indicators are provided on the bottom of this form for your review Please check appropriate box(es): [ ] Acute metabolic encephalopathy is due to ESRD [ ] Acute metabolic encephalopathy is due to agitation [ x ] Acute metabolic encephalopathy is due to missed dialysis [ ] Acute metabolic encephalopathy is of unknown etiology [ ] Other diagnosis [ ] Unable to determine In addition, please specify: Present on Admission (POA): [ x ] Yes [ ] No [ ] Unable to determine To be completed by CDI/Coding staff for physician review: Present Clinical Indicators - Signs / Symptoms / Labs Results and Location in Medical Record [ x ] Etiology of acute metabolic encephalopathy is unclear at this time, could be related to uremia or psychiatric issues Progress note 01/09 by Jagdish Israel [ x ] Altered mentation. Plan is to have dialysis to see if his mentation will improve. Agree with further evaluation to rule out any pain or other causes of his change in mental status Consult note 01/07 by Anusha Hill [ x ] Patient will be admitted to medical floor for acute metabolic encephalopathy and volume overload H and P [ x ] Patient is not oriented and in fact very agitated. When he is calm, he is not in any distress as such H and P Present Risk Factors Results and Location in Medical Record [ x ] ESRD, missing dialysis, volume overload, diabetes and hypertension Progress note 01/12 by Jagdish Neri Present Treatments Results and Location in Medical Record [ x ] Brain CT 01/07 Reports [ x ] Hemodialysis Notes [ x ] Geodon IM 15 mg Medications [ x ] IV insulin and IV antihypertensive medications Medications CDS/Technology Training Associate Signature: SJ1 Phone #: Date/Time: 01/18/2020 This is a permanent part of the Medical Record [facility]
== END 2020-01-14 16:25 | DRG 70 ==
LOC: ERS 12:32 → ERHOLD 16:28 → SURG A 19:45
PROVIDERS: ADMIT Internal Medicine; ATTEND Internal Medicine
PROC: 5A1D70Z Performance of Urinary Filtration, Intermittent, Less than 6 Hours Per Day (ICD-10-PCS; principal; 2020-01-12)
DX: G93.41 Metabolic encephalopathy (principal); N18.6 End stage renal disease; I12.0 Hypertensive chronic kidney disease with stage 5 chronic kidney disease or end stage renal disease; E87.2 Acidosis; Z20.828 Contact with and (suspected) exposure to other viral communicable diseases; E87.5 Hyperkalemia; E87.70 Fluid overload, unspecified; E78.5 Hyperlipidemia, unspecified; R45.1 Restlessness and agitation; D63.1 Anemia in chronic kidney disease; E11.22 Type 2 diabetes mellitus with diabetic chronic kidney disease; E88.09 Other disorders of plasma-protein metabolism, not elsewhere classified; E11.42 Type 2 diabetes mellitus with diabetic polyneuropathy; Z99.2 Dependence on renal dialysis; Z89.512 Acquired absence of left leg below knee; Z89.511 Acquired absence of right leg below knee; Z91.15 Patient's noncompliance with renal dialysis
CPT/HCPCS: 36415; 36416; 70450; 71045; 74176; 80048; 80053; 82550; 83690; 83880; 84484; 85025; 87635; 90471; 90662; 90935; 93005; 96372; G0008; G0257; J0360; J1630; J1644; J2060; J3486; U0003

== ENCOUNTER 2020-03-09 15:24 | Emergency (ER) | payer MEDICARE, MEDICAID ==
[2020-03-09 16:01] LABS: #Eosinphils 0.1 thou/uL (0.0-0.7); #Lymphocytes 1.1 thou/uL (1.20-3.40); #Monocytes 0.4 thou/uL (0.11-0.59); #Neutrophils 4.8 thou/uL (1.40-6.50); %Basophils 0.3 % (0.0-1.0); %Lymphocytes 17.2 % (21.0-51.0); %Monocytes 5.5 % (0.0-10.0); %Neutrophils 75.9 % (42.0-75.0); Hemoglobin 11.1 g/dL (14.0-18.0); Mean Corpuscular HGB CONC 35.1 g/dL (32.0-36.0); Mean Corpuscular Hemoglobin 33.5 pg (27.0-31.0); Mean Corpuscular Volume 95.5 fL (78.0-98.0); Mean Platelet Volume 6.8 fL (7.4-10.4); Platelet Count 189 thou/uL (130-400); White Blood Cell (WBC) Count 6.4 thou/uL (4.8-10.8)
[2020-03-09 16:25] LABS: ALT (SGPT) 14 U/L (8-55); AST (SGOT) 12 U/L (5-34); Acetaminophen Less than 6.0 mcg/mL (10.0-30.0); Albumin 3.5 g/dL (3.4-4.8); Alcohol Less than 10 mg/dL (Less than 10); Alkaline Phosphatase 114 U/L (40-110); Anion Gap 18 mmol/L (10-20); BUN (Urea Nitrogen) 31 mg/dL (8.4-25.7); Bilirubin, Total 0.8 mg/dL (0.2-1.2); Calc. Creatinine Clearance 0 mL/min (70-130); Calcium 8.6 mg/dL (7.8-10.44); Carbon Dioxide 24 mmol/L (23-31); Chloride 99 mmol/L (98-107); Globulin 3.2 g/dL (2.4-3.5); Glucose 109 mg/dL (83-110); Potassium 3.5 mmol/L (3.5-5.1); Protein, Total 6.7 g/dL (5.8-8.1); Salicylate Less than 8.0 mg/dL (15.0-30.0); Sodium 137 mmol/L (136-145)
== END 2020-03-09 18:29 ==
LOC: ERS 15:24
DX: R41.82 Altered mental status, unspecified (principal); Z89.512 Acquired absence of left leg below knee; Z89.511 Acquired absence of right leg below knee; I12.0 Hypertensive chronic kidney disease with stage 5 chronic kidney disease or end stage renal disease; E11.22 Type 2 diabetes mellitus with diabetic chronic kidney disease; N18.6 End stage renal disease; E78.5 Hyperlipidemia, unspecified; E78.00 Pure hypercholesterolemia, unspecified; Z79.899 Other long term (current) drug therapy
CPT/HCPCS: 36415; 36416; 70450; 71045; 80053; 80307; 82140; 83690; 84484; 85025; 93005

== ENCOUNTER 2020-03-15 15:32 | Inpatient (IN) | payer MEDICARE, MEDICAID ==
[~2020-03-15 15:32] MED LIST: Rocuronium Bromide 10 MG/ML (10ML VIAL) ONE; Succinylcholine 200 MG/10 ml SYRINGE FS ONE
[2020-03-15] MEDS ORDERED: Cefepime 2 GM VIAL ONE (16:08)
[2020-03-15] MEDS ORDERED: Sodium Chloride 0.9% 100 ML ONE (16:08)
--- NOTE | 2020-03-15 16:23 | RAD ---
Chest one view HISTORY: Fever. Chest pain. COMPARISON: 03/09/2020. FINDINGS: Cardiac silhouette is magnified by projection. Pulmonary vasculature upper limits of normal . Mediastinum is midline. Pericardial calcification over the left ventricular base is stable. Metallic stent over the right subclavian vessels. Patchy predominantly groundglass infiltrate projects over each lung, involving primarily the upper lo bes and the left lower lobe. No evidence of pneumothorax. IMPRESSION : Multifocal bilateral infiltrates. Correlate for COVID pneumonitis.
--- NOTE | 2020-03-15 16:26 | CT ---
CT Brain WO Con: 03/15/2020 4:05 PM CLINICAL HISTORY: 84-year-old male with altered mental status. IMAGING TECHNIQUE: Multiple CT images were obtained of the brain without IV contrast. COMPARISON: March 09, 2020 CT of the brain FINDINGS: BRAIN: Evidence of acute infarct: None. Evidence of chronic ischemic change:Mild chronic small vessel white matter ischemic change. Evidence of intracranial hemorrhage: None. Evidence of brain volume loss:There is mild generalized cerebral and cerebellar atrophy. Evidence of midline shift: Third ventricle and septum pellucidum are midline. Ventricles: Normal. No hydrocephalus. SKULL: There are stable craniotomy defects involving the right parietal skull. VISUALIZED PARANASAL SINUSES: Clear. MASTOID AIR CELLS: Clear. EXTRACRANIAL SOFT TISSUES: Normal. IMPRESSION: No acute intracranial abnormality.
[2020-03-15 16:48] LABS: Hemoglobin 9.4 g/dL (14.0-18.0); Mean Corpuscular Hemoglobin 31.7 pg (27.0-31.0); Mean Corpuscular Volume 96.2 fL (78.0-98.0); Mean Platelet Volume 8.2 fL (7.4-10.4); Platelet Count 136 thou/uL (130-400); RBC Distribution Width 13.1 % (11.5-14.5); Red Blood Cell (RBC) Count 2.96 mill/uL (4.70-6.10); White Blood Cell (WBC) Count 8.5 thou/uL (4.8-10.8)
[2020-03-15 16:55] LABS: INR-International Normal Ratio 1.1; PTT 34.9 sec (22.9-36.1); Prothrombin Time 14.1 sec (12.0-14.7)
[2020-03-15 17:08] LABS: ALT (SGPT) 50 U/L (8-55); AST (SGOT) 70 U/L (5-34); Albumin 2.9 g/dL (3.4-4.8); Alkaline Phosphatase 84 U/L (40-110); Anion Gap 23 mmol/L (10-20); BUN (Urea Nitrogen) 111 mg/dL (8.4-25.7); Bilirubin, Total 0.7 mg/dL (0.2-1.2); Calc. Creatinine Clearance 0 mL/min (70-130); Calcium 7.3 mg/dL (7.8-10.44); Carbon Dioxide 16 mmol/L (23-31); Chloride 96 mmol/L (98-107); Globulin 3.1 g/dL (2.4-3.5); Glucose 167 mg/dL (83-110); Potassium 4.4 mmol/L (3.5-5.1); Sodium 131 mmol/L (136-145)
[2020-03-15 17:13] LABS: Band 32 % (5-11); Lymphocytes 7 % (21-51); MDiff Complete? YES; Monocytes 2 % (0-10); Neutrophil 56 % (42-75); Platelet Morphology Comment Appears Adequate; Polychromasia SLIGHT = 2-3 cells (100X) (0-2/hpf); Reactive Lymphocytes 3 % (0-10)
[2020-03-15] MEDS ORDERED: Acetaminophen 650 MG Suppository ONE (18:02)
[2020-03-15] MEDS ORDERED: Vancomycin 1 GM/200 ML BAG ONE (18:03)
[2020-03-15 18:56] LABS: Lactic Acid 1.9 mmol/L (0.5-2.2)
--- NOTE | 2020-03-15 19:42 | PDOC.HHP ---
Hospitalist BRIONNA REYNOSO History of Present Illness: This is an 84-year-old male patient with a history of dementia, traumatic intracranial hemorrhage, end-stage renal disease on dialysis, anemia pretension and diabetes mellitus who was [facility] on account of altered mental status. Apparently he was diagnosed positive with Covid around 03/14/2020 Of note patient was brought in about a week ago for similar complaints however was discharged from the ED given that he was around his baseline. At presentation today he is unaccompaniedhistory was got from charts and signout. Patient is noncommunicative. At presentation his BP was 116/62, pulse 96, respiratory 28, temperature 102.1 and saturating at 100% on nonrebreather. Labs showed sodium of 131, bicarb 16, creatinine 10.9 and BUN 111. Initial lactate was 2.7 with repeat at 1.9. Hemoglobin is 9.4 down from 11.16 days ago. Chest x-ray showed multiple bilateral infiltrates to correlate with Covid pneumonia. CT brain no acute intracranial event. Patient was given a liter of normal saline with vancomycin and cefepime. Nephrology was consulted for dialysis. Allergies/Adverse Reactions: Allergy/AdvReac Type Severity Reaction Status Date / Time No Known Drug Allergies Allergy Verified 04/30/19 14:46 Home Medications: Medication Instructions Recorded Confirmed Type Atorvastatin Calcium [Lipitor] 10 mg PO HS 03/30/17 01/08/20 History Gabapentin 100 mg PO TID 03/30/17 01/08/20 History hydrALAZINE [Apresoline] 25 mg PO TID 03/30/17 03/16/20 History Acetaminophen [Tylenol] 650 mg PO PRN PRN 01/08/20 01/08/20 History Calcium Acetate 2 tablet PO QAM-WM 01/08/20 01/08/20 History Cyanocobalamin (Vitamin B-12) 500 mcg PO DAILY 01/08/20 03/16/20 History [Vitamin B-12] Folic Acid/Vit B Complex and C 0.8 mg PO QAM 01/08/20 03/16/20 History [Renal Vitamin Tablet] Hydrocortisone 1% Cream 1 applic TOP TID PRN 01/08/20 03/16/20 History Insulin Aspart [Novolog Flexpen] 100 unit SQ TID 01/08/20 03/16/20 History Loperamide HCl [Imodium] 2 mg PO ASDIR PRN 01/08/20 01/08/20 History Magnesium Hydroxide [Milk of 2,400 mg PO Q8H PRN 01/08/20 03/16/20 History Magnesia] Metoprolol Tartrate 25 mg PO BID 01/08/20 03/16/20 History Nystatin [Nystatin Cream] 1 applic TOP BID PRN 01/08/20 01/08/20 History Nystatin [Nystatin Powder] 1 applic TOP BID PRN 01/08/20 03/16/20 History guaiFENesin [Guaifenesin] 10 ml PO Q4HR PRN 01/08/20 03/16/20 History Ziprasidone [Geodon] 20 mg IM DAILY PRN vial 01/14/20 Rx Past History: PMHx: Dementia, hypertension, ESRD, diabetes mellitus, hyperlipidemia PSHx: Bilateral BKA, FHx: None of significance Social: No alcohol or smoking history noted. Lives in a [facility] Hospitalist HPI ROS ROS unobtainable: due to mental status Hospitalist Exam General - other findings: Patient in bed awake but noncommunicative ENT: normocephalic atraumatic Heart: RRR, no murmur, no gallops, no rubs Respiratory - other findings: Bilateral coarse breath sounds. Gastrointestinal: soft, non-distended, normal bowel sounds Extremities: no cyanosis Extremities - other findings: Bilateral BKA Neurological - other findings: Moves all limbs spontaneously Psychiatric - other findings: Unable to assess Hospitalist Results Result Diagrams: 03/17/20 04:00 03/17/20 04:00 Lab results: Laboratory Last Values WBC 8.5 thou/uL (4.8-10.8) 03/15/20 16:37 RBC 2.96 mill/uL (4.70-6.10) L 03/15/20 16:37 Hgb 9.4 g/dL (14.0-18.0) L 03/15/20 16:37 Hct 28.4 % (42.0-52.0) L 03/15/20 16:37 MCV 96.2 fL (78.0-98.0) 03/15/20 16:37 MCH 31.7 pg (27.0-31.0) H 03/15/20 16:37 MCHC 33.0 g/dL (32.0-36.0) 03/15/20 16:37 RDW 13.1 % (11.5-14.5) 03/15/20 16:37 Plt Count 136 thou/uL (130-400) 03/15/20 16:37 MPV 8.2 fL (7.4-10.4) 03/15/20 16:37 Neutrophils % (Manual) 56 % (42-75) 03/15/20 16:37 Band Neuts % (Manual) 32 % (5-11) H 03/15/20 16:37 Lymphocytes % (Manual) 7 % (21-51) L 03/15/20 16:37 Reactive Lymphs % 3 % (0-10) 03/15/20 16:37 Monocytes % (Manual) 2 % (0-10) 03/15/20 16:37 Lymphocytes # Not Reportable 03/15/20 16:37 Plt Morphology Comment Appears Adequate 03/15/20 16:37 Polychromasia SLIGHT = 2-3 cells (100X) (0-2/hpf) 03/15/20 16:37 PT 14.1 sec (12.0-14.7) 03/15/20 16:37 INR 1.1 03/15/20 16:37 APTT 34.9 sec (22.9-36.1) 03/15/20 16:37 Sodium 131 mmol/L (136-145) L 03/15/20 16:37 Potassium 4.4 mmol/L (3.5-5.1) 03/15/20 16:37 Chloride 96 mmol/L (98-107) L 03/15/20 16:37 Carbon Dioxide 16 mmol/L (23-31) L 03/15/20 16:37 Anion Gap 23 mmol/L (10-20) H 03/15/20 16:37 BUN 111 mg/dL (8.4-25.7) H 03/15/20 16:37 Creatinine 10.90 mg/dL (0.7-1.3) H 03/15/20 16:37 Estimated GFR (MDRD) 4 03/15/20 16:37 Glucose 167 mg/dL (83-110) H 03/15/20 16:37 Lactic Acid 1.9 mmol/L (0.5-2.2) 03/15/20 18:30 Calcium 7.3 mg/dL (7.8-10.44) L 03/15/20 16:37 Total Bilirubin 0.7 mg/dL (0.2-1.2) 03/15/20 16:37 AST 70 U/L (5-34) H 03/15/20 16:37 ALT 50 U/L (8-55) 03/15/20 16:37 Alkaline Phosphatase 84 U/L (40-110) 03/15/20 16:37 Ammonia 26 umol/L (18-72) 03/15/20 16:37 Serum Total Protein 6.0 g/dL (5.8-8.1) 03/15/20 16:37 Albumin 2.9 g/dL (3.4-4.8) L 03/15/20 16:37 Globulin 3.1 g/dL (2.4-3.5) 03/15/20 16:37 Albumin/Globulin Ratio 0.9 g/dL (1.2-2.2) L 03/15/20 16:37 Hospitalist H&P A/P Plan: This is an 84-year-old male patient with a history of diabetes mellitus, ESRD on dialysis he was [facility] in [facility] his [facility] on account of altered mental status likely secondary to sepsis and uremia. Severe sepsis Patient has fever Tachypnea with elevated lactate with altered mental status Possibly from pneumonia/Covid Received a liter of normal saline We will continue on vancomycin and cefepime for now. Follow-up on cultures. Acute encephalopathy Multifactorialsepsis/hypoxia/uremia We will treat underlying conditions Monitor closely. Acute hypoxic respiratory failure Likely secondary to Covid/volume overload/pneumonia Continue antibiotics As needed oxygen Pneumonia due to Covid Covid test apparently done at facility was positive. Start vitamin C/D and zinc Steroids Consider plasma in a.m. Anion gap metabolic acidosis Anion gap 19 Due to poor renal function and lack of dialysis He will undergo dialysis Hyponatremia Sodium 131 We will continue monitoring. Uremia Dialysis plan Nephrology consulted. ESRD Nephrology on board. Diabetes mellitus Correctional insulin Monitor glucose. Poor clinical prognosis Given patient's comorbidity and ongoing sepsis/Covid Prognosis generally poor Consult palliative care for goals of care discussion in a.m. VT prophylaxis Lovenox
[2020-03-15 19:43] LABS: Troponin I 0.211 ng/mL (< 0.028)
[2020-03-15 19:53] LABS: HBSAB Concentration Less than 8.00 mIU/mL; Hep B Surf AB Non-Reactive (NonReactive)
[2020-03-15] MEDS ORDERED: Vancomycin HCl 1 GM in Sodium Chloride 0.9% 250 ML 250 ML IVPB SCH (21:00)
[2020-03-15] MEDS ORDERED: Albumin 25% 25 GM/100 ML BOT IVPB PRN (23:06)
[2020-03-15] MEDS: Heparin 5,000 UNITS/ML VIAL SC SCH (23:11)
[2020-03-15] MEDS ORDERED: Albumin 25% 25 GM/100 ML BOT IVPB SCH (23:15)
[2020-03-15 23:46] LABS: Troponin I 0.231 ng/mL (< 0.028)
[2020-03-16] MEDS: Norepinephrine 8 MG/0.9% NS 250 ML IVPB SCH ×3 (00:50→19:44)
[2020-03-16 01:36] LABS: Actual Bicarbonate (HCO3a) 16.7 mEq/L (22-28); Base Excess (BEa) -13.5 mEq/L (-2.0 to +3.0); Calcium, Ionized (arterial) 0.97 mmol/L (1.12-1.30); Carboxyhemoglobin (COHb) 0.3 gm% (0.0-3.0); Hemoglobin (Hb) 9.7 g/dL (14.0-18.0); Potassium - ABG Lab 3.22 mmol/L (3.70-5.30)
[2020-03-16 01:51] LABS: CO2 Tension 61.6 mmHg (35.0-45.0); O2 Tension (PaO2), arterial 49.8 mmHg (> 60.0); pH, Arterial 7.05 (7.35-7.45)
[2020-03-16 01:52] LABS: Puncture Site LBA
--- NOTE | 2020-03-16 02:27 | CON ---
DATE OF CONSULTATION: 03/16/2020 HISTORY OF PRESENT ILLNESS: Mr. Ambrocio is an 84-year-old male who lives in a full-time care environment. He reportedly has dementia. He has had a traumatic intracranial hemorrhage. He is a dialysis patient. He also has diabetes. He apparently had a change in his mental status today. I am told he has COVID, but I cannot find any record of a COVID test at this institution. He certainly has an x-ray that could be consistent with COVID. FAMILY HISTORY: Not obtainable. REVIEW OF SYSTEMS: Not obtainable. PHYSICAL EXAMINATION: VITAL SIGNS: Blood pressure 149/53, heart rate is 116. His sats are 60 on 100% oxygen. GENERAL: He is unresponsive. LUNGS: Have equal breath sounds. HEART: Regular rhythm. ABDOMEN: Soft. EXTREMITIES: Without asymmetry. DIAGNOSTIC STUDIES: Chest radiograph shows diffuse bilateral alveolar infiltrates. PH is 7.0, CO2 of 61, pO2 of 49. IMPRESSION: Pneumonia. It is unclear whether this is COVID or bacterial, but in either case, he will not survive this given his gas exchange abnormalities. No one has been able to locate any family. Both Dr. Christina and myself believe that a repeat code would not lead to any chance of survival. He will be a [id number] patient moving forward, but we will continue current care. CRITICAL CARE TIME: 45 minutes. Job ID: [id number] MTDD
[2020-03-16 03:16] LABS: ALT (SGPT) 53 U/L (8-55); AST (SGOT) 99 U/L (5-34); Albumin 2.6 g/dL (3.4-4.8); Alkaline Phosphatase 80 U/L (40-110); Anion Gap 26 mmol/L (10-20); BUN (Urea Nitrogen) 59 mg/dL (8.4-25.7); Calc. Creatinine Clearance 8 mL/min (70-130); Calcium 6.9 mg/dL (7.8-10.44); Carbon Dioxide 16 mmol/L (23-31); Chloride 101 mmol/L (98-107); Globulin 2.5 g/dL (2.4-3.5); Glucose 126 mg/dL (83-110); Potassium 3.2 mmol/L (3.5-5.1); Protein, Total 5.1 g/dL (5.8-8.1); Sodium 140 mmol/L (136-145)
[2020-03-16 03:46] LABS: Band 21 % (5-11); Hemoglobin 9.1 g/dL (14.0-18.0); Lymphocytes 45 % (21-51); MDiff Complete? YES; Mean Corpuscular HGB CONC 33.2 g/dL (32.0-36.0); Mean Corpuscular Hemoglobin 33.3 pg (27.0-31.0); Mean Platelet Volume 8.6 fL (7.4-10.4); Metamyelocyte 2 % (0-0); Monocytes 2 % (0-10); Neutrophil 25 % (42-75); Platelet Count 156 thou/uL (130-400); RBC Distribution Width 13.3 % (11.5-14.5); Reactive Lymphocytes 5 % (0-10); Red Blood Cell (RBC) Count 2.72 mill/uL (4.70-6.10); White Blood Cell (WBC) Count 6.1 thou/uL (4.8-10.8)
[2020-03-16 03:49] LABS: CKMB 2.4 ng/mL (0-6.6)
--- NOTE | 2020-03-16 05:23 | PDOC.BPN ---
- Brief Progress Note Encounter Date: 03/16/20 Patient was admitted on account of severe sepsis and uremia with pneumonia due to Covid While having dialysis he became hypotensive and became unresponsive with agonal respiration. DIMITRY CLAUDIA was called and he was successfully resuscitated briefly. 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 This time to he was assessed fully resuscitated however he remained persistently hypoxemic in spite of 100% FiO2 on the ventilator. Various adjustments were made to no avail. PulmonologyDr. Kohler was called who came to reassess in make recommendations. Critical assessment of the patient indicates he is unlikely to recover from a code if if he went into another state of cardiac or respiratory arrest. This conclusion was drawn by Dr. Bryson as well. Dr. Kohler and I agreed on a DNR status for the patient .
--- NOTE | 2020-03-16 07:48 | RAD ---
Frontal radiograph chest: 03/16/2020 COMPARISON: 03/15/2020 HISTORY: Intubation FINDINGS: There is an endotracheal tube and nasogastric tube in place. There may be a curled configur ation to the distal aspect of the nasogastric tube within the epigastric region, incompletely imaged on this exam. Vascular stent material overlies the right lung apex. There is extensive consolidative change involving bilateral perihilar regions, bilateral upper lobe r egions, the bilateral mid lung zones and bilateral lung bases, left greater than right. These parenchymal opacities are nonspecific and have worsened bilaterally when compared to the to the [facility]u skylar 3 04/01/2020 exam. IMPRESSION: Extensive severe multifocal consolidative change, nonspecific and worsened, left greater than right.
[2020-03-16] MEDS: Cholecalciferol (Vitamin D3) 400 UNITS TAB PO SCH (08:04)
[2020-03-16] MEDS: Heparin 5,000 UNITS/ML VIAL SC SCH ×3 (08:05→20:13)
--- NOTE | 2020-03-16 08:06 | RAD ---
PORTABLE SUPINE CHEST: INDICATION: Central line placement. COMPARISON: 03/16/2020 at 12:25 a.m. FINDINGS: An ET tube remains in position at gabby. NG tube remains in position. Central line has been placed and the tip overlies the SVC. Bilateral confluent infiltrates with bilateral air bronchograms again noted. No significant change i n the appearance of the lung leone. POS: AGW
[2020-03-16] MEDS ORDERED: Vancomycin HCl 500 MG in Sodium Chloride 0.9% 100 ML IVPB SCH (09:00)
[2020-03-16] MEDS ORDERED: Vancomycin 1 GM in Premix Bag 1 BAG IVPB SCH (09:00)
[2020-03-16] MEDS ORDERED: Vancomycin HCl 750 MG in Sodium Chloride 0.9% 250 ML 250 ML IVPB SCH (09:00)
[2020-03-16] MEDS ORDERED: Ascorbic Acid 500 mg Chewable Tablet PO SCH (09:00)
[2020-03-16] MEDS ORDERED: Zinc Sulfate 220 MG CAP PO SCH (09:00)
[2020-03-16] MEDS ORDERED: HOLD VANCOMYCIN FOR LEVEL >20 IVP SCH (09:00)
[2020-03-16] MEDS ORDERED: Vancomycin HCl 250 MG in Sodium Chloride 0.9% 100 ML IVPB SCH (09:00)
[2020-03-16] MEDS ORDERED: FLU VACC QS2020-21(65YR UP)/PF 240 MCG/0.7 ML SYRINGE IM ONE (09:00)
[2020-03-16] MEDS ORDERED: Dexamethasone 4 mg/ml Vial SLOW IVP SCH ×2 (09:00→16:15)
--- NOTE | 2020-03-16 16:06 | PDOC.HOSPP ---
- Subjective Encounter Date: 03/16/20 non-verbal - Objective Vital Signs & Weight: Vital Signs (12 hours) Temp Pulse Resp BP Pulse Ox 03/16/20 15:09 106 H 73/42 L 03/16/20 14:00 20 03/16/20 12:00 98.3 F 21 H 91 L 03/16/20 10:58 103 H 102/52 L 03/16/20 10:00 26 H 03/16/20 08:00 98 F 23 H 86 L 03/16/20 07:35 108 H 119/54 L 03/16/20 06:00 16 03/16/20 04:49 121 H Weight Admit Weight 146 lb Weight 146 lb 1.6 oz Most Recent Monitor Data Heart Rate from ECG 107 NIBP 148/61 NIBP BP-Mean 90 Respiration from ECG 32 SpO2 94 I&O: 03/15/20 03/16/20 03/17/20 06:59 06:59 06:59 Output Total 0 Balance 0 Result Diagrams: 03/16/20 01:45 03/16/20 02:38 Additional Labs: Accuchecks 03/15/20 23:57 POC Glucose 76 Hospitalist ROS - Medication Medications: Active Medications Generic Name Dose Route Start Last Admin Trade Name Freq PRN Reason Stop Dose Admin Ascorbic Acid 1,000 mg 03/16/20 09:00 03/16/20 08:04 Ascorbic Acid 500 Mg Chewable Tablet PO 1,000 mg DAILY CR Administration Cholecalciferol 400 units 03/16/20 09:00 03/16/20 08:04 Cholecalciferol (Vitamin D3) 400 Units Tab PO 400 units DAILY CR Administration Dexamethasone 8 mg 03/16/20 09:00 03/16/20 08:05 Dexamethasone 4 Mg/Ml Vial SLOW IVP 8 mg DAILY CR Administration Heparin Sodium (Porcine) 5,000 units 03/15/20 21:00 03/16/20 14:59 Heparin 5,000 Units/Ml Vial SC 5,000 units TID CR Administration Norepinephrine Bitartrate 250 mls @ 0 mls/hr 03/16/20 00:15 03/16/20 12:18 Levophed IVPB 250 mls INF CR Administration Protocol Titrate Zinc Sulfate 220 mg 03/16/20 09:00 03/16/20 08:04 Zinc Sulfate 220 Mg Cap PO 220 mg DAILY CR Administration Hospitalist Exam Vitals: Vital Signs (12 hours) Temp Pulse Resp BP Pulse Ox 03/16/20 15:09 106 H 73/42 L 03/16/20 14:00 20 03/16/20 12:00 98.3 F 21 H 91 L 03/16/20 10:58 103 H 102/52 L 03/16/20 10:00 26 H 03/16/20 08:00 98 F 23 H 86 L 03/16/20 07:35 108 H 119/54 L 03/16/20 06:00 16 03/16/20 04:49 121 H Weight Admit Weight 146 lb Weight 146 lb 1.6 oz Most Recent Monitor Data Heart Rate from ECG 107 NIBP 148/61 NIBP BP-Mean 90 Respiration from ECG 32 SpO2 94 General - other findings: Intubated, nonresponsive Heart: RRR, no murmur, no gallops, no rubs, normal peripheral pulses Respiratory: no wheezes, normal chest expansion, no tachypnea, normal percussion, rales Gastrointestinal: soft, non-distended, no palpable masses, no hepatomegaly, no splenomegaly, diminished bowl sounds Extremities: no cyanosis, no clubbing, no edema Skin: normal turgor Hosp A/P (1) Acute respiratory failure with hypoxia Code(s): J96.01 - ACUTE RESPIRATORY FAILURE WITH HYPOXIA Status: Acute (2) Pneumonia due to COVID-19 virus Code(s): U07.1 - COVID-19; J12.82 - PNEUMONIA DUE TO CORONAVIRUS DISEASE 2019 Status: Acute (3) Acute metabolic encephalopathy Code(s): G93.41 - METABOLIC ENCEPHALOPATHY Status: Acute (4) DM type 2 (diabetes mellitus, type 2) Status: Chronic (5) ESRD (end stage renal disease) on dialysis Code(s): N18.6 - END STAGE RENAL DISEASE; Z99.2 - DEPENDENCE ON RENAL DIALYSIS Status: Chronic (6) Cardiac arrest Code(s): I46.9 - CARDIAC ARREST, CAUSE UNSPECIFIED Status: Acute - Plan Acute hypoxic respiratory failure: Patient recently diagnosed with COVID-19 pneumonia at the group home facility. Patient currently intubated. Appears to have significant encephalopathy likely due to some anoxic brain injury. Not currently in a position to de-escalate respiratory support. COVID-19 pneumonia: Given the severity of illness she remains on dexamethasone and empiric antibi otics. Status post cardiac arrest: Patient coded twice and has been resuscitated. He has no realistic chance of surviving an additional resuscitative effort. Patient has no family contacts. Personnel from his group home facility indicated that they had discussed end-of-life care with the patient and he did want a DNR. Patient remains DNR at this time. Acute metabolic encephalopathy: Likely secondary to anoxic brain injury due to cardiac arrest. End-stage renal disease on dialysis: May resume dialysis if he can achieve hemodynamic stability. Disposition: Palliative care appreciated. Continue supportive measures however the patient remains DO NOT RESUSCITATE.
[2020-03-16] MEDS ORDERED: Cefepime 0.5 GM in Sodium Chloride 0.9% 100 ML IVPB SCH (17:00)
--- NOTE | 2020-03-17 00:41 | CON ---
DATE OF CONSULTATION: 03/16/2020 Consulting physician - Dr Christina. REASON FOR CONSULT: End-stage renal disease evaluation. REASON FOR ADMISSION: Altered mentation. HISTORY OF PRESENT ILLNESS: This is an 84-year-old male with history of dementia, rectal hemorrhage, and end-stage renal disease, came to the hospital with altered mentation. He is COVID positive too. He gets dialysis on Friday, , and Friday. He missed few sessions of dialysis. He lives in a retirement. PAST MEDICAL HISTORY: Positive for end-stage renal disease, dementia, hypertension, type 2 diabetes, and hyperlipidemia. PAST SURGICAL HISTORY: Bilateral BKA with dialysis access placement. HOME MEDICATIONS: Reviewed. ALLERGIES: NO KNOWN DRUG ALLERGIES. SOCIAL HISTORY: No smoking, alcohol, or illicit drug abuse. Lives in a retirement. FAMILY HISTORY: No history of kidney disease. REVIEW OF SYSTEMS: Could not be obtained. PHYSICAL EXAMINATION: GENERAL: This is an elderly male, who is intubated. VITAL SIGNS: Temperature 98.3, pulse 105, respiratory rate , and blood pressure 140/56. HEENT: Intubated. CV: S1 and S2 heard. RESPIRATORY: Clear. MUSCULOSKELETAL: 1+ edema. NEUROLOGIC: Intubated. LABORATORY DATA: Potassium 3.2, BUN is 59, and creatinine is 6.2. ASSESSMENT AND PLAN: 1. End-stage renal disease. Plan to continue dialysis, Friday, , and Friday. 2. Edema. 3. Hypertension. 4. Anemia of chronic disease. 5. Acute hypoxic respiratory failure. 6. COVID-19 infection. Overall poor prognosis. The patient also had a code blue this morning. Repeat labs in the morning. We will follow. Job ID: [id number] [facility]
[2020-03-17 04:31] VITALS: TEMP 99.8
[2020-03-17 05:08] LABS: Anion Gap 25 mmol/L (10-20); BUN (Urea Nitrogen) 79 mg/dL (8.4-25.7); Calc. Creatinine Clearance 6 mL/min (70-130); Carbon Dioxide 31 mmol/L (23-31); Chloride 93 mmol/L (98-107); Glucose 87 mg/dL (83-110); Potassium 4.4 mmol/L (3.5-5.1); Sodium 145 mmol/L (136-145)
[2020-03-17 06:17] LABS: Band 34 % (5-11); Hemoglobin 8.8 g/dL (14.0-18.0); Lymphocytes 4 % (21-51); MDiff Complete? YES; Mean Corpuscular HGB CONC 33.2 g/dL (32.0-36.0); Mean Corpuscular Volume 96.4 fL (78.0-98.0); Mean Platelet Volume 8.3 fL (7.4-10.4); Metamyelocyte 11 % (0-0); Monocytes 2 % (0-10); Myelocyte 1 % (0-0); Neutrophil 48 % (42-75); Platelet Count 99 thou/uL (130-400); Platelet Morphology Comment Appears Decreased; RBC Distribution Width 13.4 % (11.5-14.5); Red Blood Cell (RBC) Count 2.75 mill/uL (4.70-6.10); White Blood Cell (WBC) Count 25.9 thou/uL (4.8-10.8)
[2020-03-17] MEDS: Cholecalciferol (Vitamin D3) 400 UNITS TAB PO SCH (08:41)
[2020-03-17] MEDS ORDERED: Dexamethasone 4 mg/ml Vial SLOW IVP SCH (09:00)
[2020-03-17 09:12] LABS: Vancomycin, Random 10.2 ug/mL (See Comment)
[2020-03-17] MEDS: Norepinephrine 8 MG/0.9% NS 250 ML IVPB SCH (09:28)
[2020-03-17] MEDS ORDERED: Vancomycin HCl 500 MG in Sodium Chloride 0.9% 100 ML IVPB SCH (09:30)
[2020-03-17] MEDS: Heparin 5,000 UNITS/ML VIAL SC SCH (10:26)
[2020-03-17 14:11] VITALS: BMI 36.1
[2020-03-17 15:05] VITALS: BP 115/52
--- NOTE | 2020-03-17 15:36 | PDOC.HOSPP ---
- Subjective Encounter Date: 03/17/20 non-verbal - Objective Vital Signs & Weight: Vital Signs (12 hours) Temp Pulse Resp BP Pulse Ox 03/17/20 14:57 102 H 115/52 L 03/17/20 10:31 99 101/51 L 03/17/20 10:00 29 H 03/17/20 08:00 30 H 98 03/17/20 06:00 30 H 03/17/20 04:00 99.8 F H 28 H Weight Admit Weight 146 lb Weight 149 lb 14.629 oz Most Recent Monitor Data Heart Rate from ECG 98 NIBP 102/50 NIBP BP-Mean 67 Respiration from ECG 29 SpO2 93 I&O: 03/16/20 03/17/20 03/18/20 06:59 06:59 06:59 Intake Total 805 Output Total 0 2300 1 Balance 0 -1495 -1 Result Diagrams: 03/17/20 04:00 03/17/20 04:00 Additional Labs: Accuchecks 03/17/20 09:16 POC Glucose 75 Hospitalist ROS - Medication Medications: Active Medications Generic Name Dose Route Start Last Admin Trade Name Jaswant PRN Reason Stop Dose Admin Cholecalciferol 400 units 03/16/20 09:00 03/17/20 08:41 Cholecalciferol (Vitamin D3) 400 Units Tab PO 400 units DAILY CR Administration Dexamethasone 6 mg 03/17/20 09:00 03/17/20 08:40 Dexamethasone 4 Mg/Ml Vial SLOW IVP 6 mg DAILY CR Administration Heparin Sodium (Porcine) 5,000 units 03/15/20 21:00 03/17/20 10:26 Heparin 5,000 Units/Ml Vial SC Not Given TID CR Cefepime HCl 0.5 gm/ Sodium 100 mls @ 200 mls/hr 03/16/20 17:00 03/16/20 17:36 Chloride IVPB 100 mls Q24HR@1700 CR Administration Norepinephrine Bitartrate 250 mls @ 0 mls/hr 03/16/20 00:15 03/17/20 09:28 Levophed IVPB 250 mls INF CR Administration Protocol Titrate Vancomycin HCl 500 mg/ Sodium 100 mls @ 100 mls/hr 03/17/20 09:30 03/17/20 10:22 Chloride IVPB 03/17/20 23:59 100 mls NOW CR Administration Hospitalist Exam Vitals: Vital Signs (12 hours) Temp Pulse Resp BP Pulse Ox 03/17/20 14:57 102 H 115/52 L 03/17/20 10:31 99 101/51 L 03/17/20 10:00 29 H 03/17/20 08:00 30 H 98 03/17/20 06:00 30 H 03/17/20 04:00 99.8 F H 28 H Weight Admit Weight 146 lb Weight 149 lb 14.629 oz Most Recent Monitor Data Heart Rate from ECG 98 NIBP 102/50 NIBP BP-Mean 67 Respiration from ECG 29 SpO2 93 General - other findings: Intubated and sedated Heart: RRR, no murmur, no gallops, no rubs, normal peripheral pulses Respiratory: rales, rhonchi Gastrointestinal: soft, non-distended, diminished bowl sounds Extremities: no cyanosis, no clubbing, no edema Extremities - other findings: Bilateral BKA Skin: normal turgor Hosp A/P (1) Acute respiratory failure with hypoxia Code(s): J96.01 - ACUTE RESPIRATORY FAILURE WITH HYPOXIA Status: Acute (2) Pneumonia due to COVID-19 virus Code(s): U07.1 - COVID-19; J12.82 - PNEUMONIA DUE TO CORONAVIRUS DISEASE 2019 Status: Acute (3) Acute metabolic encephalopathy Code(s): G93.41 - METABOLIC ENCEPHALOPATHY Status: Acute (4) DM type 2 (diabetes mellitus, type 2) Status: Chronic (5) ESRD (end stage renal disease) on dialysis Code(s): N18.6 - END STAGE RENAL DISEASE; Z99.2 - DEPENDENCE ON RENAL DIALYSIS Status: Chronic (6) Cardiac arrest Code(s): I46.9 - CARDIAC ARREST, CAUSE UNSPECIFIED Status: Acute - Plan Acute hypoxic respiratory failure: [facility] Patient currently intubated. Not currently in a position to de-escalate respiratory support. COVID-19 pneumonia: Given the severity of illness she remains on dexamethasone and empiric antibiotics. Status post cardiac arrest: Patient coded twice and has been resuscitated. He has no realistic chance of surviving an additional resuscitative effort. Patient has no family contacts. Personnel from [facility] indicated that they had discussed end-of-life care with the patient and he did want a DNR. Patient remains DNR at this time. Acute metabolic encephalopathy: Possibly secondary to anoxic brain injury due to cardiac arrest. He did appear to have some response to noxious stimuli on 03/17/2020. End-stage renal disease on dialysis: May resume dialysis if he can achieve hemodynamic stability. Disposition: Palliative care appreciated. Continue supportive measures however the patient remains DO NOT RESUSCITATE. Overall his prognosis is extremely poor. Strongly suspect this is a terminal event for this patient. May need to consider ethics committee consultation for eventual withdrawal of care.
--- NOTE | 2020-03-17 15:37 | PRG ---
DATE OF SERVICE: 03/17/2020 SUBJECTIVE: The patient is seen at the bedside. He remains intubated on COVID isolation. OBJECTIVE: GENERAL: This is an elderly male, intubated. VITAL SIGNS: Temperature 99.8, pulse 90, respiratory rate , blood pressure 102/50. HEENT: Intubated. CV: S1 and S2 heard. RESPIRATORY: Clear. GI: Abdomen is soft. MUSCULOSKELETAL: 1+ edema. DERMATOLOGIC: No skin rash. NEUROLOGIC: Intubated. LABORATORY DATA: Hemoglobin is 8.8. Potassium 4.4, BUN is 79, creatinine is 8.5. ASSESSMENT AND PLAN: 1. End-stage renal disease. Continue hemodialysis as tolerated. 2. Edema. 3. History of hypertension. 4. Anemia of chronic disease. 5. Acute hypoxic respiratory failure. 6. COVID-19 infection. 7. Altered mentation. 8. Severe acidosis. Plan to have dialysis for 2 hours today if tolerated. The patient is high risk for complication during dialysis. We will continue close monitoring. We will use albumin. We will follow. Job ID: [id number]
--- NOTE | 2020-03-17 17:15 | PDOC.EVN ---
Event Note - Event Note Event Note: Have reviewed the case again. Reviewing the palliative care team notes its apparent that the patient does not have any family or power of sports attorney. He has coded twice and does not have any real opportunity for recovery from this event. He had made it clear to the people at the nursing facility that he did desire DNR. Unfortunately, that information was not available at the time that the patient did code. Now he continues to require full ventilatory support. Given his advanced age and his chronic renal failure requiring dialysis and COVID-19 pneumonia with respiratory failure, statistically in experientially, this patient has virtually no chance of surviving this. I have discussed the case with Dr. Kohler. I believe compassionate extubation for this patient is a reasonable choice.
--- NOTE | 2020-03-17 17:45 | PRG ---
DATE OF SERVICE: 03/17/2020 SUBJECTIVE: Sai Ambrocio is clinically unchanged. He is not tolerating dialysis. OBJECTIVE: VITAL SIGNS: His pressure is in the 90s. LUNGS: Remarkable for coarse equal breath sounds. HEART: Regular rhythm. ABDOMEN: Soft. EXTREMITIES: Without asymmetry. LABORATORY DATA: White count 25, hemoglobin 8.8. He has 34% bands on peripheral smear. Sodium 145, potassium 4.4, chloride 93, bicarb 31, BUN 79, creatinine 8.56. IMPRESSION: 1. Status post cardiac and respiratory arrest. 2. End-stage renal disease. 3. Pre-existing dementia. 4. Pre-existing intracranial hemorrhage consequences. 5. Full-time care environment. 6. Apparently, he has no family. I feel that this is hopeless situation. I feel it is totally reasonable to withdraw support. This will be done if the hospitalist agrees. Critical care time 30 min. Job ID: [id number] MTD[facility]
--- NOTE | 2020-03-17 18:06 | PRG ---
DATE OF SERVICE: 03/17/2020 Mr. Ambrocio was terminally extubated. Dr. Hair and myself both felt this was a hopeless situation. This was confirmed by his failure to last more than a few minutes. He has been pronounced and will be released to the home. Job ID: [id number]
--- NOTE | 2020-03-18 14:06 | PDOC.DS.DS ---
Provider Date of Admission: 03/15/20 19:18 Date of Discharge: 03/17/20 Admitting Provider: Vickie Doty MD Primary Care Physician: JAZMINE BECKWITH MD Course Hospital Course: This patient is an 84-year-old male who presented from the skilled nursing. He presented to the emergency department with altered mentation and encephalopathy. Patient had a history of prior intracranial hemorrhage with subsequent dementia, diabetes mellitus and end-stage renal disease. He had bilateral lower extremity BKA's. Ultimately it was determined that the patient had no family contacts or medical power of senior attorney. He had apparently been dropped at the skilled nursing by a friend and had had no family contact. We were told the patient had moved here from [place] country and had left all of his family contact spine many years ago. Patient was febrile and tachypneic. He had encephalopathy. He had elevated lactic acid level. He had known Covid infection and it was felt he was septic from Covid pneumonia. He was covered broadly with vancomycin and cefepime. He was also noted to be uremic and hyponatremic. Patient subsequently underwent hypotensive episode at which time he became unresponsive and agonal. A CODE BLUE was called and the patient was successfully resuscitated briefly he was intubated and sent to the ICU. Soon thereafter the patient had another CODE BLUE related to a bradycardic event. Once again the patient was resuscitated but remained hypoxic in spite of being on 100% FiO2 on the ventilator. The hospitalist and pulmonary critical care physician agreed that the patient would like survive any additional resuscitative efforts. Given that there was no family or MPOA the 2 physicians agreed to make the patient DN AR. It was subsequently discovered in talking to the people who cared for him at the skilled nursing that the patient had previously expressed to them that he would desire a DNR. Became clear that this patient's complicated prior medical conditions along with his Covid pneumonia requiring ventilator support and the concurrent code events made his situation terminal. Given the lack of family/MPOA and concurrence of opinion between the hospitalist and the pulmonary critical care physician and in light of the fact that the patient had expressed an interest in being a DNR prior to being coded was felt appropriate to withdraw support. Dr. Kohler ordered the patient be removed from the ventilator and pressors discontinued. Patient subsequently passed on 03/17/2020 at 1732. Resuscitation Status: 03/16/20 01:40 Resuscitation Status Routine Resuscitation Status: DNAR: NO Resuscitation Discussed with: other physician No family Coded twice no further codes will help Lab Results: 03/17/20 04:00 03/17/20 04:00 Abnormal Lab Results - Last 48 hrs 03/17/20 04:00: Chloride 93 L, Anion Gap 25 H, BUN 79 H, Creatinine 8.56 H, Calcium 7.0 L 03/17/20 04:00: WBC 25.9 H, RBC 2.75 L, Hgb 8.8 L, Hct 26.5 L, MCH 32.0 H, Plt Count 99 L, Band Neuts % (Manual) 34 H, Lymphocytes % (Manual) 4 L, Myelocytes % 1 H, Plt Morphology Comment Appears Decreased L Microbiology - Entire Visit 03/15/20 16:37 Venous blood - Left Hand Blood Culture - Preliminary NO GROWTH AT 48 HOURS 03/15/20 15:51 Venous blood - Left Hand Blood Culture - Preliminary NO GROWTH AT 48 HOURS Vitals: Weight Admit Weight 146 lb Weight 149 lb 14.629 oz Most Recent Monitor Data Heart Rate from ECG 91 NIBP 107/45 NIBP BP-Mean 65 Respiration from ECG 25 SpO2 92 Physical Exam: The patient was seen and examined on the day of discharge. Problem (1) Acute respiratory failure with hypoxia Code(s): J96.01 - ACUTE RESPIRATORY FAILURE WITH HYPOXIA Status: Acute (2) Pneumonia due to COVID-19 virus Code(s): U07.1 - COVID-19; J12.82 - PNEUMONIA DUE TO CORONAVIRUS DISEASE 2019 Status: Acute (3) Acute metabolic encephalopathy Code(s): G93.41 - METABOLIC ENCEPHALOPATHY Status: Acute (4) DM type 2 (diabetes mellitus, type 2) Status: Chronic (5) ESRD (end stage renal disease) on dialysis Code(s): N18.6 - END STAGE RENAL DISEASE; Z99.2 - DEPENDENCE ON RENAL DIALYSIS Status: Chronic (6) Cardiac arrest Code(s): I46.9 - CARDIAC ARREST, CAUSE UNSPECIFIED Status: Acute Plan Home Medications: Medication Instructions Recorded Confirmed Type Atorvastatin Calcium [Lipitor] 10 mg PO HS 03/30/17 01/08/20 History Gabapentin 100 mg PO TID 03/30/17 01/08/20 History hydrALAZINE [Apresoline] 25 mg PO TID 03/30/17 03/16/20 History Acetaminophen [Tylenol] 650 mg PO PRN PRN 01/08/20 01/08/20 History Calcium Acetate 2 tablet PO QAM-WM 01/08/20 01/08/20 History Cyanocobalamin (Vitamin B-12) 500 mcg PO DAILY 01/08/20 03/16/20 History [Vitamin B-12] Folic Acid/Vit B Complex and C 0.8 mg PO QAM 01/08/20 03/16/20 History [Renal Vitamin Tablet] Hydrocortisone 1% Cream 1 applic TOP TID PRN 01/08/20 03/16/20 History Insulin Aspart [Novolog Flexpen] 100 unit SQ TID 01/08/20 03/16/20 History Loperamide HCl [Imodium] 2 mg PO ASDIR PRN 01/08/20 01/08/20 History Magnesium Hydroxide [Milk of 2,400 mg PO Q8H PRN 01/08/20 03/16/20 History Magnesia] Metoprolol Tartrate 25 mg PO BID 01/08/20 03/16/20 History Nystatin [Nystatin Cream] 1 applic TOP BID PRN 01/08/20 01/08/20 History Nystatin [Nystatin Powder] 1 applic TOP BID PRN 01/08/20 03/16/20 History guaiFENesin [Guaifenesin] 10 ml PO Q4HR PRN 01/08/20 03/16/20 History Ziprasidone [Geodon] 20 mg IM DAILY PRN vial 01/14/20 Rx Allergies: No Known Drug Allergies Allergy (Verified 04/30/19 14:46) Referrals: JAZMINE BECKWITH [Primary Care Provider] - Disposition: Quality CORE MEASURES:: N/A
== END 2020-03-17 17:32 | disposition expired | DRG 871 ==
LOC: ERS 15:32 → 2SW 19:18 → CCU 03-16 00:41
PROVIDERS: ADMIT Internal Medicine; ATTEND Internal Medicine
PROC: 5A1945Z Respiratory Ventilation, 24-96 Consecutive Hours (ICD-10-PCS; principal; 2020-03-15)
PROC: 0BH17EZ Insertion of Endotracheal Airway into Trachea, Via Natural or Artificial Opening (ICD-10-PCS; 2020-03-15)
PROC: 3E033XZ Introduction of Vasopressor into Peripheral Vein, Percutaneous Approach (ICD-10-PCS; 2020-03-16)
PROC: 5A1D70Z Performance of Urinary Filtration, Intermittent, Less than 6 Hours Per Day (ICD-10-PCS; 2020-03-16)
PROC: 5A12012 Performance of Cardiac Output, Single, Manual (ICD-10-PCS; 2020-03-16)
PROC: 02HV33Z Insertion of Infusion Device into Superior Vena Cava, Percutaneous Approach (ICD-10-PCS; 2020-03-16)
DX: A41.89 Other specified sepsis (principal); N18.6 End stage renal disease; U07.1 COVID-19; G93.41 Metabolic encephalopathy; J12.82 Pneumonia due to coronavirus disease 2019; J96.01 Acute respiratory failure with hypoxia; I13.2 Hypertensive heart and chronic kidney disease with heart failure and with stage 5 chronic kidney disease, or end stage renal disease; E87.2 Acidosis; E87.1 Hypo-osmolality and hyponatremia; Z66 Do not resuscitate; D63.1 Anemia in chronic kidney disease; I50.9 Heart failure, unspecified; E78.5 Hyperlipidemia, unspecified; E78.00 Pure hypercholesterolemia, unspecified; E11.22 Type 2 diabetes mellitus with diabetic chronic kidney disease; F32.9 Major depressive disorder, single episode, unspecified; F03.90 Unspecified dementia, unspecified severity, without behavioral disturbance, psychotic disturbance, mood disturbance, and anxiety; R65.20 Severe sepsis without septic shock; R00.1 Bradycardia, unspecified; I46.9 Cardiac arrest, cause unspecified; Z78.1 Physical restraint status; Z99.2 Dependence on renal dialysis; Z87.820 Personal history of traumatic brain injury; Z79.899 Other long term (current) drug therapy; Z79.4 Long term (current) use of insulin; Z89.512 Acquired absence of left leg below knee; Z89.511 Acquired absence of right leg below knee
CPT/HCPCS: 36415; 36416; 36600; 70450; 71045; 80048; 80053; 80202; 82140; 82553; 82728; 82805; 83605; 84484; 85025; 85379; 85610; 85730; 86140; 86706; 87040; 90935; 92950; 93005; 93010; 94002; 94003; 94760; 96365; 96367; G0257; J0692; J1100; J1644; J3370; J3490; P9047